=== PATIENT | male | born 1945 | race Caucasian/White ===

== ENCOUNTER 2018-02-01 10:04 | Emergency (ER) | payer OTHER ==
--- NOTE | 2018-02-01 10:35 | EDPHYS ---
Physician Documentation [facility] Name: Vamshi Felton Jr Age: 72 yrs Sex: Male : 1945 Arrival Date: 02/01/2018 Time: 10:07 Bed 16 Private MD: Trevin Russ V ED Physician Martínez Reddy HPI: 02/01 10:20 This 72 yrs old Male presents to ER via Ambulatory with complaints of jmm Laceration To Arm. 10:20 The patient has a laceration. The laceration(s) is(are) located on the left arm. Onset: jmm The symptoms/episode began/occurred acutely, 1 day(s) ago. This is a 72 year old male with a history of HLP that presents to the ED with a laceration to the left elbow. Patient states he scraped the elbow on porcelain while lifting a water jug. Patient is concerned due to ongoing mild bleeding. Patient is taking Plavix and aspirin. . Historical: - Allergies: 10:10 PENICILLINS; aj - Home Meds: 10:10 atorvastatin Oral [Active]; metoprolol tartrate 50 mg Oral tab 1 tab 2 times per day aj [Active]; Plavix 75 mg Oral tab 1 tab once daily [Active]; - PMHx: 10:10 Hyperlipidemia; Myocardial infarction; aj - PSHx: 10:10 Heart stents; Pacemaker; aj - Immunization history:: Adult Immunizations up to date. - Social history:: Smoking status: Patient/guardian denies using tobacco. - Ebola Screening: : Patient negative for fever greater than or equal to 101.5 degrees Fahrenheit, and additional compatible Ebola Virus Disease symptoms Patient denies exposure to infectious person Patient denies travel to an Ebola-affected area in the 21 days before illness onset No symptoms or risks identified at this time. ROS: 10:26 Constitutional: Negative for fever, chills, and weight loss, Cardiovascular: Negative jmm for chest pain, palpitations, and edema, Respiratory: Negative for shortness of breath, cough, wheezing, and pleuritic chest pain. 10:26 MS/extremity: Positive for laceration. 10:26 Skin: Positive for laceration(s). 10:26 All other systems are negative. Exam: 10:26 Head/Face: atraumatic. Chest/axilla: Normal chest wall appearance and motion. elmo Cardiovascular: Regular rate and rhythm. No edema appreciated Respiratory: Normal respirations, no respiratory distress appreciated 10:26 Eyes: EOMI, no conjunctival erythema appreciated ENT: Moist Mucus Membranes Neck: Trachea midline, Supple Abdomen/GI: Non distended, soft Back: Normal ROM 10:26 Constitutional: The patient appears in no acute distress, alert, awake. 10:26 Skin: healing laceration noted to the left elbow, no active bleeding appreciated, no surrounding erythema or induration noted to the proximal left forearm. 10:26 Neuro: Orientation: is normal, Mentation: is normal, Memory: is normal, Gait: is steady. 10:26 Psych: Behavior/mood is pleasant, cooperative. Vital Signs: 10:10 BP 138 / 76; Pulse 60; Resp 20; Temp 97.2; Pulse Ox 96% on R/A; Weight 77.11 kg; Height aj 5 ft. 8 in. (172.72 cm); 10:10 Body Mass Index 25.85 (77.11 kg, 172.72 cm) Procedures: 10:26 Performed wound care. Pressure dressing with surgicel applied to laceration. . elmo MDM: 10:20 Patient medically screened. [facility] 10:26 Data reviewed: vital signs, nurses notes. Counseling: I had a detailed discussion with elmo the patient and/or guardian regarding: the historical points, exam findings, and any diagnostic results supporting the discharge/admit diagnosis, the need for outpatient follow up, to return to the emergency department if symptoms worsen or persist or if there are any questions or concerns that arise at home. 10:26 Data interpreted: Pulse oximetry: on room air is 96 %. Interpretation: normal. elmo Administered Medications: No medications were administered Disposition: 17:31 Co-signature as Attending Physician, Martínez Reddy MD. Disposition: 02/01/18 10:34 Discharged to Home. Impression: Left Forearm Laceration. - Condition is Stable. - Discharge Instructions: Nonsutured Laceration Care. - Medication Reconciliation Form, Thank You Letter, Antibiotic Education, Prescription Opioid Use form. - Follow up: Private Physician; When: 2 - 3 days; Reason: Recheck today's complaints, Continuance of care, Re-evaluation by your physician. Signatures: Lisbeth Musa RN RN aj Mickail, Joel, PA PA jmm Leal, Jahala, MICAH RN jl7 Martínez Reddy MD MD gs Corrections: (The following items were deleted from the chart) 10:28 10:20 This is a 72 year old male with a history of HLP that presents to the ED with. jmmjmm 10:51 10:34 02/01/2018 10:34 Discharged to Home. Impression: Left Forearm Laceration. jl7 Condition is Stable. Forms are Medication Reconciliation Form, Thank You Letter, Antibiotic Education, Prescription Opioid Use. Follow up: Private Physician; When: 2 - 3 days; Reason: Recheck today's complaints, Continuance of care, Re-evaluation by your physician. elmo
--- NOTE | 2018-02-01 10:35 | ER ---
Nurse's Notes [facility] Name: Vamshi Felton Jr Age: 72 yrs Sex: Male : 1945 Arrival Date: 02/01/2018 Time: 10:07 Bed 16 Private MD: Trevin Russ V Diagnosis: Left Forearm Laceration Presentation: 02/01 10:09 Presenting complaint: Patient states: Skin tear to left elbow 24 hours ago, patient aj reports bleeding has continued. Transition of care: patient was not received from another setting of care. Complicating Factors: There are no complicating factors for this patient. Onset of symptoms was January 31, 2018. Risk Assessment: Do you want to hurt yourself or someone else? Patient reports no desire to harm self or others. Initial Sepsis Screen: Does the patient meet any 2 criteria? No. Patient's initial sepsis screen is negative. Does the patient have a suspected source of infection? No. Patient's initial sepsis screen is negative. Care prior to arrival: None. 10:09 Method Of Arrival: Ambulatory aj 10:09 Acuity: EARLENE 4 aj Triage Assessment: 10:10 General: Appears in no apparent distress. comfortable, Behavior is calm, cooperative, aj appropriate for age. Pain: Denies pain. Neuro: Level of Consciousness is awake, alert, obeys commands, Oriented to person, place, time, situation, Appropriate for age. Respiratory: Airway is patent Respiratory effort is even, unlabored, Respiratory pattern is regular, symmetrical. Derm: Skin is intact, is healthy with good turgor, Skin is pink, warm \T\ dry. normal. Injury Description: Laceration sustained to left elbow. Historical: - Allergies: 10:10 PENICILLINS; aj - Home Meds: 10:10 atorvastatin Oral [Active]; metoprolol tartrate 50 mg Oral tab 1 tab 2 times per day aj [Active]; Plavix 75 mg Oral tab 1 tab once daily [Active]; - PMHx: 10:10 Hyperlipidemia; Myocardial infarction; aj - PSHx: 10:10 Heart stents; Pacemaker; aj - Immunization history:: Adult Immunizations up to date. - Social history:: Smoking status: Patient/guardian denies using tobacco. - Ebola Screening: : Patient negative for fever greater than or equal to 101.5 degrees Fahrenheit, and additional compatible Ebola Virus Disease symptoms Patient denies exposure to infectious person Patient denies travel to an Ebola-affected area in the 21 days before illness onset No symptoms or risks identified at this time. Screenin:20 Abuse screen: Denies threats or abuse. Denies injuries from another. Nutritional jl7 screening: No deficits noted. Tuberculosis screening: No symptoms or risk factors identified. Fall Risk None identified. Assessment: 10:20 General: Appears in no apparent distress. uncomfortable, Behavior is calm, appropriate jl7 for age. Pain: Denies pain. Neuro: Level of Consciousness is awake, alert, obeys commands, Oriented to person, place, time, situation. Cardiovascular: Patient's skin is warm and dry. Respiratory: Airway is patent Respiratory effort is even, unlabored, Respiratory pattern is regular, symmetrical. Derm: Skin is pink, warm \T\ dry. Musculoskeletal: Range of motion: intact in all extremities. Injury Description: Skin tear noted to left elbow. Vital Signs: 10:10 BP 138 / 76; Pulse 60; Resp 20; Temp 97.2; Pulse Ox 96% on R/A; Weight 77.11 kg; Height aj 5 ft. 8 in. (172.72 cm); 10:10 Body Mass Index 25.85 (77.11 kg, 172.72 cm) aj ED Course: 10:07 Patient arrived in ED. mr 10:07 Trevin Russ MD is Private Physician. mr 10:10 Triage completed. aj 10:10 Arm band placed on left wrist. Patient placed in an exam room. aj 10:13 Devante Little PA is PHCP. [facility] 10:13 Martínez Reddy MD is Attending Physician. [facility] 10:20 Patient has correct armband on for positive identification. Bed in low position. Call jl7 light in reach. Side rails up X 1. Pulse ox on. NIBP on. 10:20 Patient did not have IV access during this emergency room visit. jl7 10:29 Kin Sebastian, MICAH is Primary Nurse. jl7 10:49 Wound care: to laceration located on left elbow was cleaned with soap and water, jl7 dressed with non stick gauze and Coban , absorbable hemostat applied Patient tolerated well. 10:51 No provider procedures requiring assistance completed. jl7 Administered Medications: No medications were administered Outcome: 10:34 Discharge ordered by . elmo 10:49 Discharged to home ambulatory. jl7 10:49 Condition: stable 10:49 Discharge instructions given to patient, Instructed on discharge instructions, follow up and referral plans. wound care, Demonstrated understanding of instructions, follow-up care, wound care. 10:51 Patient left the ED. jl7 Signatures: Lisbeth Musa RN RN aj Mickail, Joel, PA PA jmm Rivera, Maria mr Kin Sebastian RN RN jl7
== END 2018-02-01 10:51 | disposition home or self-care (01) ==
LOC: ER 10:04
DX: S51.812A Laceration without foreign body of left forearm, initial encounter (principal); W22.8XXA Striking against or struck by other objects, initial encounter; Y93.89 Activity, other specified; Y92.9 Unspecified place or not applicable; Z79.01 Long term (current) use of anticoagulants; Z88.0 Allergy status to penicillin; Z95.0 Presence of cardiac pacemaker; Z95.818 Presence of other cardiac implants and grafts; E78.5 Hyperlipidemia, unspecified; I25.2 Old myocardial infarction
CPT/HCPCS: 99283

== ENCOUNTER 2020-03-23 12:42 | Observation (INO) | payer OTHER ==
[2020-03-23 13:05] VITALS: BMI 25.7
[2020-03-23] MEDS ORDERED: NACHLORIDE 0.45% 1,000 ML IV SCH (14:00)
[2020-03-23] MEDS ORDERED: ACETAMINOPHEN 325 MG TABLET PO PRN (14:00)
[2020-03-23] MEDS ORDERED: ONDANSETRON 4 MG/2 ML VIAL IV PRN (14:00)
[2020-03-23] MEDS ORDERED: DIPHENHYDRAMINE 25 MG TAB/CAP PO PRN (14:00)
[2020-03-23] MEDS ORDERED: LOPERAMIDE HCL 2 MG CAPSULE PO PRN (14:00)
[2020-03-23] MEDS ORDERED: ONDANSETRON 4 MG (ODT) TAB PO PRN (14:00)
[2020-03-23] MEDS ORDERED: POLYETHYL GLY 3350 17 GM/DOSE PO PRN (14:00)
--- NOTE | 2020-03-23 14:31 | RAD REPORT ---
EXAM DESCRIPTION: Matt Curtis And Lat (2 Views)03/23/2020 2:06 pm CLINICAL HISTORY: Shortness of breath COMPARISON: March 16, 2020 FINDINGS: Mild bilateral interstitial opacities have partially resolved Small pleural effusions. The heart is mildly enlarged. Pacemaker leads in place IMPRESSION: Partial resolution in mild CHF
[2020-03-23 14:50] LABS: Absolute Lymphocytes (CBC) 0.5 K/uL (0.7-4.9); Basophils % 0.4 % (0-1.3); Hematocrit 34.6 % (39.6-49.0); Lymphocytes % 5.1 % (15.3-44.8); MPV 8.7 fL (7.6-11.3); RBC Red Blood Cell Count 3.47 M/uL (4.33-5.43)
[2020-03-23 14:54] LABS: Protime INR 1.68
[2020-03-23 15:30] LABS: Albumin 3.4 g/dL (3.4-5.0); Bilirubin Direct 0.3 mg/dL (0-0.2); Bilirubin Total 0.9 mg/dL (0.2-1.0); Magnesium 2.2 mg/dL (1.8-2.4); Phosphorus 3.1 mg/dL (2.5-4.9); Potassium 4.4 mmol/L (3.5-5.1); Protein, Total 6.5 g/dL (6.4-8.2); Thyroid Stimulating Hormone 1.09 uIU/mL (0.360-3.740)
[2020-03-23 16:03] LABS: Blood Morphology Comment NOT SEEN (NOT SEEN); Platelet Estimate ADEQ; White Blood Cell Scan OK (OK)
[2020-03-23] MEDS ORDERED: FUROSEMIDE 40 MG/4 ML VIAL IV SCH (21:00)
[2020-03-23] MEDS: METOPROLOL TARTRATE 50 MG PO SCH (21:00)
[2020-03-23] MEDS: FUROSEMIDE 20 MG/ 2ML VIAL IV SCH (21:17)
[2020-03-23] MEDS: POTASSIUM CL SA 10 MEQ TAB PO SCH (21:17)
[2020-03-24 06:06] LABS: Absolute Lymphocytes (CBC) 0.9 K/uL (0.7-4.9); Basophils % 0.6 % (0-1.3); Hematocrit 30.9 % (39.6-49.0); Lymphocytes % 10.1 % (15.3-44.8); MPV 8.4 fL (7.6-11.3); RBC Red Blood Cell Count 3.15 M/uL (4.33-5.43)
[2020-03-24 06:20] LABS: Magnesium 2.2 mg/dL (1.8-2.4); Potassium 4.6 mmol/L (3.5-5.1)
[2020-03-24] MEDS: FUROSEMIDE 20 MG/ 2ML VIAL IV SCH ×2 (08:38→22:01)
[2020-03-24] MEDS: POTASSIUM CL SA 10 MEQ TAB PO SCH ×2 (08:38→21:00)
[2020-03-24] MEDS ORDERED: FERROUS SULFATE 65 MG PO SCH (09:00)
[2020-03-24] MEDS ORDERED: CLOPIDOGREL BISULFATE PO SCH (09:00)
[2020-03-24] MEDS: VALSARTAN PO SCH (09:00)
[2020-03-24] MEDS: FEXOFENADINE HCL 180 MG PO SCH (09:00)
[2020-03-24] MEDS: SACUBITRIL PO SCH (09:00)
[2020-03-24] MEDS: METOPROLOL TARTRATE 50 MG PO SCH ×2 (09:00→21:00)
[2020-03-24] MEDS: OMEPRAZOLE 40 MG PO SCH (09:00)
[2020-03-24] MEDS ORDERED: ACETAMINOPHEN 325 MG PO PRN (14:50)
[2020-03-24] MEDS ORDERED: CLONAZEPAM 0.5 MG PO PRN (16:00)
[2020-03-24] MEDS ORDERED: CLONAZEPAM 0.5 MG PO SCH (18:00)
[2020-03-24] MEDS ORDERED: XARELTO 20 MG PO SCH (18:00)
--- NOTE | 2020-03-24 20:29 | P.PN ---
Subjective Date of Service: 03/24/20 Chief Complaint: DYSPNEA Subjective: Improving MR. MUNOZ FAILED OUTPATIENT THERAPY OF LASIX BID, ENTRESTO FOR HIS CHF SYMPTOMS. TODAY HE IS SOMEWHAT BETTER BUT NOT SIGNIFICANLY. HE WILL STAY ONE MORE DAY AND GET IV DIURESIS. Review of Systems 10-point ROS is otherwise unremarkable General: Weakness Respiratory: Shortness of Breath Physical Examination - Vital Signs Temperature: 98.1 F Blood Pressure: 159/82 Pulse: 66 Respirations: 23 Pulse Ox (%): 91 - Physical Exam General: Oriented x3, Mild distress, Moderate distress HEENT: Atraumatic, PERRLA, EOMI Neck: Supple, JVD not distended, JVD distended (IMPROVED FROM YESTEERDAY) Respiratory: Clear to auscultation bilaterally, Normal air movement Cardiovascular: Regular rate/rhythm, Normal S1 S2 Gastrointestinal: Normal bowel sounds, No tenderness Musculoskeletal: No tenderness Integumentary: No rashes Neurological: Normal speech, Normal tone, Normal affect Lymphatics: No axilla or inguinal lymphadenopathy - Studies Laboratory Data (last 24 hrs) 03/24/20 05:38: Sodium 142, Potassium 4.6, BUN 27 H, Creatinine 1.14, Glucose 84, Magnesium 2.2 03/24/20 05:38: WBC 8.8, Hgb 10.6 L, Hct 30.9 L, Plt Count 261 Medications List Reviewed: Yes Assessment And Plan - Current Problems (Diagnosis) (1) Systolic CHF, acute on chronic Current Visit: Yes Status: Acute Plan: DECOMPENSATION TREATED BY LASIX IV BID. YOUNG CHAPMAN. HE GOES TO DR. BRUNO. (2) HTN (hypertension) Current Visit: Yes Status: Chronic Qualifiers: Hypertension type: essential hypertension Qualified Code(s): I10 - Essential (primary) hypertension (3) A-fib Current Visit: Yes Status: Chronic Plan: ANTICOAGULATED RATE CONTROL DONE. Qualifiers: Atrial fibrillation type: longstanding persistent Qualified Code(s): I48.11 - Longstanding persistent atrial fibrillation
[2020-03-24] MEDS ORDERED: RIVAROXABAN 10 MG TABLET PO SCH (21:00)
[2020-03-25 08:12] VITALS: TEMP 97.5
[2020-03-25] MEDS ORDERED: CITALOPRAM 40 MG PO SCH (09:00)
[2020-03-25] MEDS: OMEPRAZOLE 40 MG PO SCH (09:00)
[2020-03-25] MEDS: VALSARTAN PO SCH (09:00)
[2020-03-25] MEDS: SACUBITRIL PO SCH (09:00)
[2020-03-25] MEDS ORDERED: CITALOPRAM 10 MG TABLET PO SCH (09:00)
[2020-03-25] MEDS: METOPROLOL TARTRATE 50 MG PO SCH (09:00)
[2020-03-25] MEDS: FEXOFENADINE HCL 180 MG PO SCH (09:00)
[2020-03-25] MEDS: FUROSEMIDE 20 MG/ 2ML VIAL IV SCH (09:22)
[2020-03-25] MEDS: POTASSIUM CL SA 10 MEQ TAB PO SCH (09:22)
[2020-03-25 11:59] VITALS: BP 140/73
[2020-03-25 13:06] VITALS: O2SAT 96
--- NOTE | 2020-03-25 14:55 | P.DS ---
Admission Date: 03/23/20 Discharge Date: 03/25/20 Disposition: ROUTINE DISCHARGE Discharge Condition: FAIR Reason for Admission: DYSPNEA - Problems (1) Systolic CHF, acute on chronic Current Visit: Yes Status: Acute (2) HTN (hypertension) Current Visit: Yes Status: Chronic Qualifiers: Hypertension type: essential hypertension Qualified Code(s): I10 - Essential (primary) hypertension (3) A-fib Current Visit: Yes Status: Chronic Qualifiers: Atrial fibrillation type: longstanding persistent Qualified Code(s): I48.11 - Longstanding persistent atrial fibrillation Hospital Course: MR. MUNOZ HAS SEVERE SYSTOLIC CHF, HE IS ON HIGH DOSE OF LASIX BID 80 MG. HE STILL IS SYMPTOMATIC. HE DID BETTER WITH IV LASIX. HE IS WALKING AROUND IN THE ROOM WITHOUT MUCH DISTRESS. HE HAS EDEMA OF LEGS. HE WILL FOLLOW WITH DR. BRUNO. HE IS ALREADY ON ENTERSTO. HE IS STABLE FOR DISCHARGE. Vital Signs/Physical Exam: Temp Pulse Resp BP Pulse Ox 97.5 F 60 14 140/73 96 03/25/20 11:58 03/25/20 11:58 03/25/20 11:58 03/25/20 11:58 03/25/20 11:58 Laboratory Data at Discharge: WBC 8.8 K/uL (4.3-10.9) 03/24/20 05:38 Hgb 10.6 g/dL (13.6-17.9) L 03/24/20 05:38 Hct 30.9 % (39.6-49.0) L 03/24/20 05:38 Plt Count 261 K/uL (152-406) 03/24/20 05:38 PT 19.6 SECONDS (9.5-12.5) H 03/23/20 14:28 INR 1.68 03/23/20 14:28 APTT 33.1 SECONDS (24.3-36.9) 03/23/20 14:28 Sodium 142 mmol/L (136-145) 03/24/20 05:38 Potassium 4.6 mmol/L (3.5-5.1) 03/24/20 05:38 BUN 27 mg/dL (7-18) H 03/24/20 05:38 Creatinine 1.14 mg/dL (0.55-1.3) 03/24/20 05:38 Glucose 84 mg/dL (74-106) 03/24/20 05:38 Phosphorus 3.1 mg/dL (2.5-4.9) 03/23/20 14:28 Magnesium 2.2 mg/dL (1.8-2.4) 03/24/20 05:38 Total Bilirubin 0.9 mg/dL (0.2-1.0) 03/23/20 14:28 AST 58 U/L (15-37) H 03/23/20 14:28 ALT 85 U/L (12-78) H 03/23/20 14:28 Alkaline Phosphatase 93 U/L (45-117) 03/23/20 14:28 Home Medications: Atorvastatin Calcium [Lipitor] 40 mg PO DAILY 07/30/14 Clonazepam 0.5 mg PO PRN 07/30/14 Clopidogrel Bisulfate [Clopidogrel] 1 tab PO DAILY 07/30/14 Fexofenadine HCl [Joycelyn Allergy] 60 mg PO DAILY 07/30/14 Furosemide 1 tab PO Q12H 07/30/14 Metoprolol Tartrate 50 mg PO BID 07/30/14 Potassium Chloride 5 meq PO DAILY 07/30/14 Acetaminophen [Tylenol] 1 tab PO PRN PRN 03/23/20 Ascorbic Acid [Vitamin C*] 500 mg PO [id number] 03/23/20 Ferrous Sulfate [Ferrous Sulfate*] 65 mg PO DAILY 03/23/20 Pantoprazole [Protonix Tab*] 40 mg PO DAILY 03/23/20 Rivaroxaban [Xarelto*] 20 mg PO BEDTIME 03/23/20 Sacubitril/Valsartan [Entresto 24 mg-26 mg Tablet] 1 tab PO DAILY 03/23/20 Citalopram [Celexa*] 40 mg PO DAILY 03/24/20 Followup: Trevin Russ MD [Primary Care Provider] -
[2020-03-26 12:41] LABS: Vitamin D 1,25-Dihydroxy Total 76 pg/mL (18-72); Vitamin D,1,25-OH2, D2 <8 pg/mL
== END 2020-03-25 16:19 | disposition home or self-care (01) ==
LOC: 2ND 12:42
PROVIDERS: ADMIT Internal Medicine; ATTEND Internal Medicine
DX: I11.0 Hypertensive heart disease with heart failure (principal); I50.23 Acute on chronic systolic (congestive) heart failure; I48.11 Longstanding persistent atrial fibrillation; Z85.46 Personal history of malignant neoplasm of prostate; I25.10 Atherosclerotic heart disease of native coronary artery without angina pectoris; M19.90 Unspecified osteoarthritis, unspecified site; K21.9 Gastro-esophageal reflux disease without esophagitis; I42.0 Dilated cardiomyopathy; Z79.01 Long term (current) use of anticoagulants
CPT/HCPCS: 87040; 85025 ×2; 80048 ×2; 36415 ×2; 83735 ×2; 84100; 85610; 80076; 85730; 82652; 84443; 82607; 83880; 71046; J1940 ×4; G0378 ×4; G0379

== ENCOUNTER 2020-04-02 07:04 | Observation (INO) | payer OTHER ==
--- NOTE | 2020-04-02 08:01 | RAD REPORT ---
EXAM DESCRIPTION: RAD - Chest Single View - 04/02/2020 7:50 am CLINICAL HISTORY: DYSPNEA Chest pain. COMPARISON: Chest Pa And Lat (2 Views) dated 03/23/2020; Chest Pa And Lat (2 Views) dated 03/16/2020 ; CHEST PA AND LAT 2 VIEW dated 09/09/2012; CHEST SINGLE VIEW dated 03/17/2009 FINDINGS: Portable technique limits examination quality. Mild to moderate interstitial pulmonary edema is seen with small bilateral pleural effusions. The hea rt is moderately enlarged with multilead pacer/ defibrillator device. No displaced fractures. IMPRESSION: Mild to moderate CHF is present.
[2020-04-02] MEDS ORDERED: FUROSEMIDE 40 MG/4 ML VIAL ONE (08:07)
[2020-04-02 08:11] LABS: Absolute Lymphocytes (CBC) 0.6 K/uL (0.7-4.9); Basophils % 0.5 % (0-1.3); Hematocrit 33.6 % (39.6-49.0); Lymphocytes % 6.2 % (15.3-44.8); MPV 8.7 fL (7.6-11.3); RBC Red Blood Cell Count 3.44 M/uL (4.33-5.43)
[2020-04-02 08:16] LABS: Protime INR 2.35
[2020-04-02 08:27] LABS: Potassium 3.9 mmol/L (3.5-5.1)
[2020-04-02 08:28] LABS: Troponin (Emerg Dept Use Only) 0.05 ng/mL (0.0-0.045)
--- NOTE | 2020-04-02 08:54 | EDPHYS ---
Physician Documentation [facility] Name: Vamshi Felton Jr Age: 74 yrs Sex: Male : 1945 Arrival Date: 04/02/2020 Time: 07:09 Bed 16 Private MD: Trevin Russ V ED Physician Carlos Matrínez HPI: 04/02 07:28 This 74 yrs old Male presents to ER via Ambulatory with complaints of rn Shortness Of Breath. 07:28 The patient has shortness of breath with light activity. Onset: The symptoms/episode rn began/occurred at an unknown time. Duration: The symptoms are intermittent. The patient's shortness of breath is aggravated by exertion, light activity, walking. Associated signs and symptoms: Pertinent positives: non-productive cough, Pertinent negatives: diaphoresis, dizziness, fever, hemoptysis, loss of consciousness, vomiting. Severity of symptoms: At their worst the symptoms were moderate in the emergency department the symptoms are unchanged. The patient has experienced similar episodes in the past. The patient has been recently seen at the [facility] Emergency Department, The patient has been recently been admitted at [facility]. Reports admitted last week for CHF, never really felt much better at time of discharge, feels about the same to slightly worse than when in hospital, no fever or productive cough. Reports tested neg for COVID-19 "multiple times". COmpliant with lasix, 40mg daily. . Historical: - Allergies: 07:22 PENICILLINS; hb - Home Meds: 07:30 atorvastatin Oral [Active]; metoprolol tartrate 50 mg Oral tab 1 tab 2 times per day rb3 [Active]; Plavix 75 mg Oral tab 1 tab once daily [Active]; - PMHx: 07:22 Hyperlipidemia; Myocardial infarction; CHF; hb - PSHx: 07:22 Heart stents; Pacemaker; hb - Immunization history:: Adult Immunizations up to date. - Social history:: Smoking status: Patient denies any tobacco usage or history of. - Family history:: not pertinent. - Hospitalizations: : The patient was recently seen at [facility]. ROS: 07:28 Constitutional: Negative for fever, chills, and weight loss, Eyes: Negative for injury, rn pain, redness, and discharge, Neck: Negative for injury, pain, and swelling, Cardiovascular: Negative for chest pain, palpitations, + peripheral edema Respiratory: + sob and non-productive cough Abdomen/GI: Negative for abdominal pain, nausea, vomiting, diarrhea, and constipation, Back: Negative for injury and pain, MS/Extremity: Negative for injury and deformity, Skin: Negative for injury, rash, and discoloration, Neuro: Negative for headache, weakness, numbness, tingling, and seizure. Exam: 07:28 Constitutional: This is a well developed, well nourished patient who is awake, alert, rn and in no acute distress. Slowly ambulatory to room. Head/Face: Normocephalic, atraumatic. ENT: No stridor Cardiovascular: Irregular rhythm, regular rate, intact distal pulses Respiratory: + mild tachypnea, no retractions Abdomen/GI: soft, non-tender Skin: Warm, dry MS/ Extremity: Pulses equal, no cyanosis. + 1+ pitting edema bilateral lower ext Neuro: Awake and alert, GCS 15, oriented to person, place, time, and situation. Cranial nerves II-XII grossly intact. Motor strength 4/5 in all extremities. Sensory grossly intact. Vital Signs: 07:18 BP 152 / 101; Pulse 63; Resp 24; Temp 97.8(TE); Pulse Ox 97% on R/A; Pain 0/10; hb 08:30 BP 140 / 88; Pulse 60; Resp 27; Pulse Ox 94% ; Pain 0/10; rb3 09:30 BP 154 / 86; Pulse 65; Resp 19; Pulse Ox 100% ; rb3 10:42 BP 155 / 88; Pulse 60; Resp 17; Pulse Ox 97% ; rb3 11:24 BP 149 / 86; Pulse 61; Resp 22; Temp 98.0; Pulse Ox 95% ; Pain 0/10; rb3 12:30 BP 125 / 82; Pulse 59; Resp 20; Pulse Ox 95% on R/A; Pain 0/10; rb3 MDM: 07:24 Patient medically screened. rn 08:50 Differential diagnosis: CHF exacerbation, Myocardial Infarction Pneumothorax pulmonary rn edema. Data reviewed: vital signs, nurses notes, lab test result(s), EKG, radiologic studies, plain films, and as a result, I will admit patient. Counseling: I had a detailed discussion with the patient and/or guardian regarding: the historical points, exam findings, and any diagnostic results supporting the discharge/admit diagnosis, lab results, radiology results, the need for further work-up and treatment in the hospital. Response to treatment: the patient's symptoms have mildly improved after treatment, and as a result, I will admit patient. Admission orders: after a detailed discussion of the patient's condition and case, the admit orders are written by me. ED course: Pt with tachypnea, oxygen 93%, CXR shows pulmonary edema with moderate CHF picture, consulted with Dr. Russ, will admit with cardiology consult. . 04/02 07:25 Order name: BMP; Complete Time: 08:50 rn 04/02 07:25 Order name: CBC with Diff; Complete Time: 08:24 rn 04/02 07:25 Order name: NT PRO-BNP; Complete Time: 08:50 rn 04/02 07:25 Order name: PT-INR; Complete Time: 08:50 rn 04/02 07:25 Order name: Ptt, Activated; Complete Time: 08:50 rn 04/02 07:25 Order name: Troponin (emerg Dept Use Only); Complete Time: 08:50 rn 04/02 07:25 Order name: XRAY CXR (1 view); Complete Time: 08:24 rn 04/02 07:25 Order name: EKG; Complete Time: 07:26 rn 04/02 07:25 Order name: Cardiac monitoring; Complete Time: 08:44 rn 04/02 07:25 Order name: EKG - Nurse/Tech; Complete Time: 08:44 rn 04/02 07:25 Order name: IV Saline Lock; Complete Time: 08:44 rn 04/02 07:25 Order name: Labs collected and sent; Complete Time: 08:44 rn 04/02 07:25 Order name: O2 Per Protocol; Complete Time: 08:44 rn 04/02 07:25 Order name: O2 Sat Monitoring; Complete Time: 08:44 rn Administered Medications: 08:17 Drug: Lasix 40 mg Route: IVP; Site: left antecubital; rb3 08:30 Follow up: Response: No adverse reaction rb3 Disposition: 04/02/20 08:53 Hospitalization ordered by Trevin Russ for Inpatient Admission. Preliminary diagnosis are Unspecified combined systolic (congestive) and diastolic (congestive) heart failure, Dyspnea, unspecified, Pulmonary edema. - Bed requested for Telemetry/MedSurg (Inpatient). - Status is Inpatient Admission. rb3 - Condition is Stable. - Problem is an ongoing problem. - Symptoms have improved. Signatures: Dispatcher [employer] EDMS Carlos Martínez MD MD rn Baxter, Heather RN Yosvany Monzon RN RN ja1 Kimber Melton, RN RN rb3 Corrections: (The following items were deleted from the chart) 08:41 07:28 Constitutional: This is a well developed, well nourished patient who is awake, rn alert, and in no acute distress. Slowly ambulatory to room. Head/Face: Normocephalic, atraumatic. ENT: No stridor Cardiovascular: Irregular rhythm, regular rate, intact distal pulses Respiratory: + mild tachypnea, no retractions Abdomen/GI: soft, non-tender Skin: Warm, dry MS/ Extremity: Pulses equal, no cyanosis. Neuro: Awake and alert, GCS 15, oriented to person, place, time, and situation. Cranial nerves II-XII grossly intact. Motor strength 4/5 in all extremities. Sensory grossly intact. rn 10:59 08:53 Hospitalization Ordered by Trevin Russ MD for Inpatient Admission. Preliminary ja1 diagnosis is Unspecified combined systolic (congestive) and diastolic (congestive) heart failure; Dyspnea, unspecified; Pulmonary edema. Bed requested for Telemetry/MedSurg (Inpatient). Status is Inpatient Admission. Condition is Stable. Problem is an ongoing problem. Symptoms have improved. rn 13:00 10:59 04/02/2020 08:53 Hospitalization Ordered by Trevin Russ MD for Inpatient rb3 Admission. Preliminary diagnosis is Unspecified combined systolic (congestive) and diastolic (congestive) heart failure; Dyspnea, unspecified; Pulmonary edema. Bed requested for Telemetry/MedSurg (Inpatient). Status is Inpatient Admission. Condition is Stable. Problem is an ongoing problem. Symptoms have improved. ja1
--- NOTE | 2020-04-02 08:54 | ER ---
Nurse's Notes [facility] Name: Vamshi Felton Jr Age: 74 yrs Sex: Male : 1945 Arrival Date: 04/02/2020 Time: 07:09 Bed 16 Private MD: Trevin Russ V Diagnosis: Unspecified combined systolic (congestive) and diastolic (congestive) heart failure;Dyspnea, unspecified;Pulmonary edema Presentation: 04/02 07:18 Chief complaint: Worsening SOB over last few days. Hx of CHF, says the Lasix is not hb helping. Coronavirus screen: Client presents with at least one sign or symptom that may indicate coronavirus-19. Standard/surgical mask placed on the client. Ebola Screen: No symptoms or risks identified at this time. Initial Sepsis Screen: Does the patient meet any 2 criteria? No. Patient's initial sepsis screen is negative. Does the patient have a suspected source of infection? No. Patient's initial sepsis screen is negative. Risk Assessment: Do you want to hurt yourself or someone else? Patient reports no desire to harm self or others. Onset of symptoms was April 02, 2020. 07:18 Method Of Arrival: Ambulatory hb 07:18 Acuity: EARLENE 3 hb Triage Assessment: 07:22 General: Appears in no apparent distress. Behavior is calm, cooperative. Pain: Denies hb pain. EENT: No signs and/or symptoms were reported regarding the EENT system. Neuro: Level of Consciousness is awake, alert, obeys commands, Oriented to person, place, time, situation. Cardiovascular: Capillary refill < 3 seconds Patient's skin is warm and dry. Rhythm is regular. Respiratory: Reports shortness of breath the patient has mild shortness of breath. GI: No signs and/or symptoms were reported involving the gastrointestinal system. : No signs and/or symptoms were reported regarding the genitourinary system. Derm: No signs and/or symptoms reported regarding the dermatologic system. Musculoskeletal: No signs and/or symptoms reported regarding the musculoskeletal system. 07:25 General: I agree with the above assessment. rb3 Historical: - Allergies: 07:22 PENICILLINS; hb - Home Meds: 07:30 atorvastatin Oral [Active]; metoprolol tartrate 50 mg Oral tab 1 tab 2 times per day rb3 [Active]; Plavix 75 mg Oral tab 1 tab once daily [Active]; - PMHx: 07:22 Hyperlipidemia; Myocardial infarction; CHF; hb - PSHx: 07:22 Heart stents; Pacemaker; hb - Immunization history:: Adult Immunizations up to date. - Social history:: Smoking status: Patient denies any tobacco usage or history of. - Family history:: not pertinent. - Hospitalizations: : The patient was recently seen at [facility]. Screenin:23 Abuse screen: Denies threats or abuse. Denies injuries from another. Nutritional hb screening: No deficits noted. Tuberculosis screening: No symptoms or risk factors identified. Fall Risk None identified. Assessment: 07:23 General: see triage . hb 08:05 Reassessment: Patient appears in no apparent distress at this time. No changes from rb3 previously documented assessment. Respiratory: Reports shortness of breath at rest on exertion. 09:01 Reassessment: Patient appears in no apparent distress at this time. Patient and/or rb3 family updated on plan of care and expected duration. Pain level reassessed. Patient is alert, oriented x 3, equal unlabored respirations, skin warm/dry/pink. Patient denies pain at this time. 10:00 Reassessment: Patient appears in no apparent distress at this time. No changes from rb3 previously documented assessment. Patient denies pain at this time. 10:43 Reassessment: Patient appears in no apparent distress at this time. Patient and/or rb3 family updated on plan of care and expected duration. Pain level reassessed. Patient is alert, oriented x 3, equal unlabored respirations, skin warm/dry/pink. 11:09 Reassessment: Tried to call report, unable to give report at this time. The nurse is in rb3 a pt. room. 11:23 Reassessment: Gave report to MICAH Garcia. Information from the SBAR was given. All rb3 questions asked and answered. 12:00 Reassessment: Patient appears in no apparent distress at this time. Patient and/or rb3 family updated on plan of care and expected duration. Pain level reassessed. Patient is alert, oriented x 3, equal unlabored respirations, skin warm/dry/pink. Patient denies pain at this time. 12:07 Reassessment: Awaiting for someone to be available to transport pt. to the floor. rb3 12:52 Reassessment: Patient appears in no apparent distress at this time. No changes from rb3 previously documented assessment. Vital Signs: 07:18 BP 152 / 101; Pulse 63; Resp 24; Temp 97.8(TE); Pulse Ox 97% on R/A; Pain 0/10; hb 08:30 BP 140 / 88; Pulse 60; Resp 27; Pulse Ox 94% ; Pain 0/10; rb3 09:30 BP 154 / 86; Pulse 65; Resp 19; Pulse Ox 100% ; rb3 10:42 BP 155 / 88; Pulse 60; Resp 17; Pulse Ox 97% ; rb3 11:24 BP 149 / 86; Pulse 61; Resp 22; Temp 98.0; Pulse Ox 95% ; Pain 0/10; rb3 12:30 BP 125 / 82; Pulse 59; Resp 20; Pulse Ox 95% on R/A; Pain 0/10; rb3 ED Course: 07:09 Patient arrived in ED. am2 07:09 Trevin Russ MD is Private Physician. am2 07:21 Triage completed. hb 07:22 Arm band placed on. hb 07:23 Patient has correct armband on for positive identification. Bed in low position. Call hb light in reach. Side rails up X 1. 07:24 Carlos Martínez MD is Attending Physician. rn 07:47 Kimber Melton, MICAH is Primary Nurse. rb3 07:50 XRAY CXR (1 view) In Process Unspecified. EDMS 08:02 Inserted saline lock: 20 gauge in left antecubital area, using aseptic technique. Blood hb collected. 08:53 Trevin Russ MD is Hospitalizing Provider. rn 12:59 No provider procedures requiring assistance completed. Patient admitted, IV remains in rb3 place. Administered Medications: 08:17 Drug: Lasix 40 mg Route: IVP; Site: left antecubital; rb3 08:30 Follow up: Response: No adverse reaction rb3 Output: 09:30 Urine: 1000ml (Voided); Total: 1000ml. rb3 10:42 Urine: 650ml (Voided); Total: 1650ml. rb3 11:29 Urine: 350ml (Voided); Total: 2000ml. rb3 Outcome: 08:53 Decision to Hospitalize by Provider. rn 12:59 Admitted to Med/surg accompanied by tech, via wheelchair, room 204, with chart, Report rb3 called to MICAH Garcia 12:59 Condition: stable 12:59 Instructed on the need for admit. 13:00 Patient left the ED. rb3 Signatures: Dispatcher [employer] EDMS Carlos Martínez MD MD rn Baxter, Heather, RN RN Lisbeth Elder [facility] Kimber Melton RN RN rb3 Corrections: (The following items were deleted from the chart) 07:22 07:18 BP 152 / 101; Pulse 63bpm; Resp 20bpm; Pulse Ox 97% RA; Temp 97.8F Temporal; Pain hb 0/10; hb
[2020-04-02] MEDS ORDERED: ONDANSETRON 4 MG/2 ML VIAL IV PRN (13:48)
[2020-04-02] MEDS ORDERED: ACETAMINOPHEN 325 MG TABLET PO PRN ×2 (14:23→20:00)
--- NOTE | 2020-04-02 14:42 | P.HP ---
Certification for Inpatient Patient admitted to: Inpatient With expected LOS: >2 Midnights Practitioner: I am a practitioner with admitting privileges, knowledge of patient current condition, hospital course, and medical plan of care. Services: Services provided to patient in accordance with Admission requirements found in Title 42 Section 412.3 of the Code of Federal Regulations Patient History Date of Service: 04/02/20 Reason for admission: SHORT OF BREATH AT REST History of Present Illness: MR. MUNOZ HAS CONGESTIVE CARDIOMYOPATHY AND HAS REFRACTORY CHF FROM IT. HE WAS JUST IN HOSPITAL FOR EXACERBATION, IMPROVED SIGNIFICANLTY BUT GOT MORE DYSPNEIC LATELY AND CAME BACK TO ER. HE HAS NO CHEST PAIN. Allergies Latex, Natural Rubber Allergy (Verified 04/02/20 13:56) Shortness of breath Penicillins Allergy (Verified 07/30/14 08:34) DIARRHEA antihistamines Adverse Reaction (Uncoded 03/23/20 13:14) PALPITATIONS Home Medications: Atorvastatin Calcium [Lipitor] 40 mg PO DAILY 07/30/14 Clonazepam 0.5 mg PO PRN 07/30/14 Clopidogrel Bisulfate [Clopidogrel] 1 tab PO DAILY 07/30/14 Fexofenadine HCl [Joycelyn Allergy] 60 mg PO DAILY 07/30/14 Furosemide 1 tab PO Q12H 07/30/14 Metoprolol Tartrate 50 mg PO BID 07/30/14 Potassium Chloride 5 meq PO DAILY 07/30/14 Acetaminophen [Tylenol] 1 tab PO PRN PRN 03/23/20 Ascorbic Acid [Vitamin C*] 500 mg PO [id number] 03/23/20 Ferrous Sulfate [Ferrous Sulfate*] 65 mg PO DAILY 03/23/20 Pantoprazole [Protonix Tab*] 40 mg PO DAILY 03/23/20 Rivaroxaban [Xarelto*] 20 mg PO BEDTIME 03/23/20 Sacubitril/Valsartan [Entresto 24 mg-26 mg Tablet] 1 tab PO DAILY 03/23/20 Citalopram [Celexa*] 40 mg PO DAILY 03/24/20 - Past Medical/Surgical History Has patient received pneumonia vaccine in the past: Yes Diabetic: No -: Prostate CA -: Haert attack 2008 -: Heart Stent 2008 -: Duodenal ulcer -: Afib -: CHF -: General Panic attack -: Pacemaker/Defib 2008 -: Parathyroid removal 2012 - Family History Mother -: Heart disease Notes: AFIB, CHF Father -: Diabetes - Social History Smoking Status: Former smoker Alcohol use: No CD- Drugs: No Caffeine use: Yes Place of Residence: Home Review of Systems 10-point ROS is otherwise unremarkable General: As per HPI Physical Examination - Physical Exam General: Moderate distress HEENT: Atraumatic, PERRLA, Mucous membr. moist/pink, EOMI, Sclerae nonicteric Neck: Supple, 2+ carotid pulse no bruit, No LAD, Without JVD or thyroid abnormality Respiratory: Diminished, Crackles/rales Cardiovascular: Regular rate/rhythm, Normal S1 S2, Edema Gastrointestinal: Normal bowel sounds, No tenderness Musculoskeletal: No tenderness Integumentary: No rashes Neurological: Normal gait, Normal speech, Normal strength at 5/5 x4 extr, Normal tone, Normal affect Lymphatics: No axilla or inguinal lymphadenopathy - Studies Laboratory Data (last 24 hrs) 04/02/20 07:59: PT 27.3 H, INR 2.35, APTT 39.4 H 04/02/20 07:59: WBC 10.1 D, Hgb 11.4 L, Hct 33.6 L, Plt Count 256 04/02/20 07:59: Sodium 141, Potassium 3.9, BUN 25 H, Creatinine 1.22, Glucose 105 Assessment and Plan - Problems (Diagnosis) (1) CHF (congestive heart failure) Current Visit: Yes Status: Acute Plan: MR MUNOZ HAS NOT DONE WELL [facility] HE IS ON LASIX 80 MG PO BID AND ENTRESTO FOR CHF. I AM ADDING SPIRONOLACTONE AND ZAROXOLYN TO HELP DIURESIS. HE MAY BE A GOOD CANDIDATE FOR HEART TRANSPLANT BUT AGAIN HE IS 74 AND WILL CARRY A POOR PROGNOSIS FOR SURGERY LIKE THAT. DR ARNOLD HAS BEEN CONSULTED. DAILY LAB. Qualifiers: Heart failure type: systolic (2) Systolic CHF, acute on chronic Current Visit: No Status: Acute (3) A-fib Current Visit: No Status: Chronic Plan: HE IS ON METOPROLOL AND ELIQUIS Qualifiers: Atrial fibrillation type: permanent Qualified Code(s): I48.21 - Permanent atrial fibrillation - Advance Directives Does patient have a Living Will: Yes Does patient have a Durable POA for Healthcare: Yes
[2020-04-02] MEDS ORDERED: clonazePAM 0.5 MG TAB PO SCH (15:00)
[2020-04-02] MEDS: FUROSEMIDE 40 MG/4 ML VIAL IV SCH (17:00)
--- NOTE | 2020-04-02 17:40 | CON ---
Date of Consultation: 04/02/2020 Reason For Consultation: Shortness of breath and congestive heart failure. History Of Present Illness: This is a 74-year-old male with history of diastolic heart failure; atri al fibrillation; dyslipidemia; coronary artery disease, status post cardiac stent placement, has the pacemaker in place, presented with worsening shortness of breath, orthopnea, and lower extremity carolyn a. He is taking Lasix 40 mg at home twice a day, which did not seem to be helping well lately. He d oes not have any chest pain. No nausea, vomiting, or diarrhea. Past Medical History: As outlined above. Medications: Refer to reconciliation sheet for detailed list. Allergies: PENICILLIN. Family History: No premature coronary artery disease or cancer. Social History: Does not smoke or drink. Does not use any drugs. Review of Systems: All systems reviewed were negative except for mentioned in the HPI. Physical Examination: Vital Signs: Reviewed. His blood pressure is 145/74, heart rate is 85, breathing at 18, temperature is 97.4. General: Pleasant elderly male, in no distress. HEENT and Neck: Pupils are equal, reactive to light. Intact eye movements. No JVD. No cervical ly mphadenopathy. Neck is supple. Thyroid is not enlarged. Lungs: Crackles in the bases with no accessory muscle use or muscle retraction. Heart: Irregular with no extra sounds. Abdomen: Soft, nontender. Bowel sounds positive. No organomegaly. No masses or hernia. No rigidi ty or rebound. EXTREMITIES: Edema bilaterally. No clubbing or cyanosis. Intact pulses. Skin: No rashes. Neurologic: Alert, awake, oriented x3. No acute focal deficits appreciated. Investigations: NT-proBNP is 11,108. Troponin 0.05. Creatinine 1.22. White blood cell count is 10 .1, hemoglobin 11.4. Chest x-ray; [id number] congestive heart failure. Assessment And Plan: 1.Acute congestive heart failure exacerbation, likely acute on chronic diastolic heart failure. His creatinine is 1.22. Recommend IV Lasix 40 mg IV q.8 hours. Monitor BUN, creatinine, and electrolyt es carefully, and obtain an echocardiogram on him if it was not done recently. Also, keep the patien t on telemetry please and trend cardiac enzymes. 2.Borderline elevated troponin, likely due to heart failure. Patient does not have chest pain, two sets of cardiac enzymes, and put the patient on aspirin 81 mg daily. 3.Atrial fibrillation, likely paroxysmal, rate is controlled now, admitted on telemetry to monitor t his issue and continue home medications. Thank you for the consultation. /ALEXANDRA Voice ID: [id number] Report ID: [id number]
[2020-04-02 19:35] VITALS: BMI 24.7
[2020-04-02] MEDS ORDERED: RIVAROXABAN 10 MG TABLET PO SCH (21:00)
[2020-04-02] MEDS: METOPROLOL TAR 50 MG TAB PO SCH (21:00)
[2020-04-03 05:14] LABS: Absolute Lymphocytes (CBC) 0.9 K/uL (0.7-4.9); Basophils % 0.9 % (0-1.3); Hematocrit 32.4 % (39.6-49.0); Lymphocytes % 13.3 % (15.3-44.8); MPV 8.8 fL (7.6-11.3); RBC Red Blood Cell Count 3.27 M/uL (4.33-5.43)
[2020-04-03 05:44] LABS: Potassium 3.6 mmol/L (3.5-5.1)
[2020-04-03] MEDS ORDERED: ASCORBIC ACID 500 MG TABLET PO SCH (06:00)
[2020-04-03] MEDS ORDERED: PANTOPRAZOLE 40MG TABLET PO SCH (06:30)
[2020-04-03 06:58] VITALS: TEMP 98.9
[2020-04-03] MEDS ORDERED: METOLAZONE 2.5 MG TABLET PO SCH (08:30)
[2020-04-03 09:00] VITALS: O2SAT 95
[2020-04-03] MEDS ORDERED: CLOPIDOGREL 75 MG TABLET PO SCH (09:00)
[2020-04-03] MEDS: METOPROLOL TAR 50 MG TAB PO SCH (09:00)
[2020-04-03] MEDS ORDERED: POTASSIUM CL SA 10 MEQ TAB PO SCH (09:00)
[2020-04-03] MEDS ORDERED: SACUBITRIL/VALSARTAN 24/26 MG TAB PO SCH (09:00)
[2020-04-03] MEDS ORDERED: SPIRONOLACTONE 25 MG TABLET PO SCH (09:00)
[2020-04-03] MEDS ORDERED: [UNRECOGNIZED DRUG - REMARK] PO SCH (09:00)
[2020-04-03] MEDS ORDERED: POTASSIUM CHLORIDE 5 MEQ PO SCH (09:00)
[2020-04-03] MEDS ORDERED: ATORVASTATIN 40 MG TAB PO SCH (09:00)
[2020-04-03] MEDS ORDERED: CITALOPRAM 10 MG TABLET PO SCH (09:00)
[2020-04-03] MEDS ORDERED: FERROUS SULFATE 325 MG TAB PO SCH (09:00)
[2020-04-03] MEDS: FUROSEMIDE 40 MG/4 ML VIAL IV SCH (10:10)
[2020-04-03 10:16] VITALS: BP 125/73
--- NOTE | 2020-04-06 06:13 | EKG ---
Test Date: 2020-04-02 Test Time: 08:17:41 Rug Cleaner Hand: SAYRA MEASUREMENT RESULTS: Intervals: Rate: 60 SD: QRSD: 176 QT: 570 QTc: 570 [place]: P: 73 SD: QRS: -51 T: 121 INTERPRETIVE STATEMENTS: AV sequential or dual chamber electronic pacemaker Compared to ECG 03/18/2009 01:09:28 No significant changes Electronically Signed On 04-06-20 06:10:16 STAMP PRESSER by Darrin Stoner
== END 2020-04-03 12:05 | disposition home or self-care (01) ==
LOC: ER 07:04 → INTOOBSV 09:14 → ERHOLD 09:14 → 2ND 11:21
PROVIDERS: ADMIT Internal Medicine; ATTEND Internal Medicine
DX: I50.20 Unspecified systolic (congestive) heart failure (principal); I48.21 Permanent atrial fibrillation; E78.5 Hyperlipidemia, unspecified; Z20.828 Contact with and (suspected) exposure to other viral communicable diseases; I25.10 Atherosclerotic heart disease of native coronary artery without angina pectoris; Z95.5 Presence of coronary angioplasty implant and graft; Z95.0 Presence of cardiac pacemaker; R74.8 Abnormal levels of other serum enzymes; I42.8 Other cardiomyopathies; Z85.46 Personal history of malignant neoplasm of prostate; I25.2 Old myocardial infarction; Z87.891 Personal history of nicotine dependence; Z79.01 Long term (current) use of anticoagulants
CPT/HCPCS: 93005; 85025 ×2; 80048 ×2; 36415; 85610; 85730; 84484 ×3; 83880 ×2; 71045; 96374; 99285; U0002; J1940 ×3; G0378; U0003

== ENCOUNTER 2021-01-16 10:04 | Emergency (ER) | payer OTHER ==
[2021-01-16 12:21] LABS: Protime INR 1.88
[2021-01-16 12:26] LABS: Absolute Lymphocytes (CBC) 0.8 K/uL (0.7-4.9); Basophils % 0.5 % (0-1.3); Hematocrit 35.7 % (39.6-49.0); Lymphocytes % 9.3 % (15.3-44.8); MPV 8.4 fL (7.6-11.3); RBC Red Blood Cell Count 3.54 M/uL (4.33-5.43)
--- NOTE | 2021-01-16 12:30 | RAD REPORT ---
EXAM DESCRIPTION: RAD - Chest Single View - 01/16/2021 12:22 pm CLINICAL HISTORY: CHEST PAIN COMPARISON: Chest Single View dated 04/02/2020; Chest Pa And Lat (2 Views) dated 03/23/2020; Chest P a And Lat (2 Views) dated 03/16/2020; CHEST PA AND LAT 2 VIEW dated 09/09/2012 FINDINGS: Lines: None. Lungs: No evidence of edema or pneumonia. Pleural: No significant pleural effusions or pneumothorax. Cardiac: Cardiomegaly. Pacemaker. Bones: No acute fractures. Other: IMPRESSION: No acute cardiopulmonary disease.
[2021-01-16 12:44] LABS: ALT/SGPT 60 U/L (12-78); AST/SGOT 37 U/L (15-37); Albumin 3.7 g/dL (3.4-5.0); Alkaline Phosphatase 82 U/L (45-117); BUN Blood Urea Nitrogen 26 mg/dL (7-18); Bicarbonate 25 mmol/L (21-32); Bilirubin Direct 0.4 mg/dL (0-0.2); Bilirubin Total 1.2 mg/dL (0.2-1.0); Glucose Level 92 mg/dL (74-106); NT PRO-BNP 10571 pg/mL (<450); Potassium 4.8 mmol/L (3.5-5.1); Protein, Total 6.6 g/dL (6.4-8.2); Sodium Level 139 mmol/L (136-145); Troponin (Emerg Dept Use Only) < 0.02 ng/mL (0.0-0.045)
[2021-01-16] MEDS ORDERED: METOPROLOL TARTRATE 5 MG/5 ML INJ IV ONE (13:46)
[2021-01-16] MEDS ORDERED: FUROSEMIDE 40 MG/4 ML VIAL ONE (14:51)
--- NOTE | 2021-01-16 15:17 | EDPHYS ---
Physician Documentation [facility] Name: Vamshi Felton Jr Age: 75 yrs Sex: Male : 1945 Arrival Date: 01/16/2021 Time: 10:11 Bed 17 Private MD: Trevin Russ V ED Physician Carlos Martínez HPI: 01/16 13:22 This 75 yrs old Male presents to ER via Ambulatory with complaints of jr8 Shortness Of Breath, Nausea. 13:22 Onset: The symptoms/episode began/occurred gradually. Duration: The symptoms are jr8 continuous. The patient's shortness of breath is aggravated by light activity. Associated signs and symptoms: The patient has no apparent associated signs or symptoms. Severity of symptoms: At their worst the symptoms were moderate in the emergency department the symptoms are unchanged. The patient has not experienced similar symptoms in the past. The patient has been recently seen by a physician:. This is a 75-year-old male patient that came in to the emergency room for further evaluation of shortness of breath, nausea, decreased appetite. Has seen his primary care and his flexboard operator down here for the symptoms. Patient stated that he has a degrading pace maker wire that needs to be fixed. Has seen his mixing machine feeder who is currently tampering with the settings to hopefully improve instead of having to replace. Patient stated that he continues to have an elevated heart rate which will happen for about 24 hours and then dissipate. Patient stated that he was more short of breath than normal and as such was asked to come in for further evaluation. Historical: - Allergies: 11:04 PENICILLINS; iw - PMHx: 11:04 CHF; Hyperlipidemia; Myocardial infarction; iw - PSHx: 11:04 pacemaker/defibrillator; iw - Immunization history:: Client reports receiving the 2nd dose of the Covid vaccine. - Social history:: Smoking status: Patient denies any tobacco usage or history of. ROS: 13:22 Eyes: Negative for injury, pain, redness, and discharge, ENT: Negative for injury, jr8 pain, and discharge, Neck: Negative for injury, pain, and swelling, Abdomen/GI: Negative for abdominal pain, vomiting, diarrhea, and constipation. Positive for nausea Back: Negative for injury and pain, MS/Extremity: Negative for injury and deformity, Skin: Negative for injury, rash, and discoloration, Neuro: Negative for headache, weakness, numbness, tingling, and seizure. 13:22 Cardiovascular: Positive for palpitations, Negative for chest pain, edema. 13:22 Respiratory: Positive for dyspnea on exertion, shortness of breath. Exam: 13:22 Constitutional: This is a well developed, well nourished patient who is awake, alert, jr8 and in no acute distress. Eyes: Pupils equal round and reactive to light, extra-ocular motions intact. Lids and lashes normal. Conjunctiva and sclera are non-icteric and not injected. Cornea within normal limits. Periorbital areas with no swelling, redness, or edema. ENT: Nares patent. No nasal discharge, no septal abnormalities noted. Tympanic membranes are normal and external auditory canals are clear. Oropharynx with no redness, swelling, or masses, exudates, or evidence of obstruction, uvula midline. Mucous membranes moist. Neck: Trachea midline, no thyromegaly or masses palpated, and no cervical lymphadenopathy. Supple, full range of motion without nuchal rigidity, or vertebral point tenderness. No Meningismus. Respiratory: Lungs have equal breath sounds bilaterally, clear to auscultation and percussion. No rales, rhonchi or wheezes noted. No increased work of breathing, no retractions or nasal flaring. Abdomen/GI: Soft, non-tender, with normal bowel sounds. No distension or tympany. No guarding or rebound. No evidence of tenderness throughout. Back: No spinal tenderness. No costovertebral tenderness. Full range of motion. Skin: Warm, dry with normal turgor. Normal color with no rashes, no lesions, and no evidence of cellulitis. MS/ Extremity: Pulses equal, no cyanosis. Neurovascular intact. Full, normal range of motion. Neuro: Awake and alert, GCS 15, oriented to person, place, time, and situation. Cranial nerves II-XII grossly intact. Motor strength 5/5 in all extremities. Sensory grossly intact. 13:22 Cardiovascular: Rate: tachycardic, Rhythm: Paced rhythm on 12-lead, Pulses: Pulses are 2+ in right radial artery and left radial artery. Heart sounds: normal, normal S1and S2, no S3 or S4, no murmur, no rub, no gallop, Edema: is not appreciated, JVD: is not appreciated. Vital Signs: 11:01 BP 109 / 82; Pulse 113; Resp 18 S; Temp 98.1; Pulse Ox 99% on R/A; iw 12:00 BP 119 / 86; Pulse 114; Resp 23; Pulse Ox 98% ; bp 13:00 BP 123 / 88; Pulse 113; Resp 25; Pulse Ox 97% ; bp 14:00 BP 125 / 95; Pulse 115; Resp 26; Pulse Ox 97% ; bp 15:00 BP 126 / 91; Pulse 114; Resp 26; Pulse Ox 97% ; bp 16:00 BP 128 / 82; Pulse 115; Resp 27; Pulse Ox 97% ; bp MDM: 12:01 Patient medically screened. [facility] 15:17 Data reviewed: vital signs, nurses notes, lab test result(s), EKG, radiologic studies, jr plain films. Data interpreted: Pulse oximetry: on room air is 97 %. Interpretation: normal. Counseling: I had a detailed discussion with the patient and/or guardian regarding: the historical points, exam findings, and any diagnostic results supporting the discharge/admit diagnosis, lab results, radiology results, the need for outpatient follow up, a flexboard operator, to return to the emergency department if symptoms worsen or persist or if there are any questions or concerns that arise at home. ED course: Patient remains mildly tachycardic. Patient is feeling better overall. Has been diuresed. Otherwise hemodynamically stable. BNP elevated but otherwise no other emergent findings on cardiac exam or with labs. Discussed case with Dr. Hickman who agreed with all that we can do right now is to continue beta-blockers and diuresis. Patient has had no hypoxia on room air. Will have patient follow-up with cardiology next couple days and to continue to keep his electrophysiology appointment as well. If patient were to become more short of breath or started to have chest pain or worsening of tachycardia to immediately come back to emergency room. Patient good with the plan at this time.. 01/16 11:31 Order name: Basic Metabolic Panel [facility] 01/16 11:31 Order name: CBC with Diff; Complete Time: 12:32 [facility] 01/16 11:31 Order name: LFT's; Complete Time: 12:51 [facility] 01/16 11:31 Order name: Magnesium; Complete Time: 12:51 [facility] 01/16 11:31 Order name: NT PRO-BNP; Complete Time: 12:51 01/16 11:31 Order name: PT-INR; Complete Time: 12:32 01/16 11:31 Order name: Troponin (emerg Dept Use Only); Complete Time: 12:51 01/16 11:31 Order name: XRAY Chest (1 view); Complete Time: 12:32 01/16 11:31 Order name: EKG; Complete Time: 11:32 01/16 11:31 Order name: Cardiac monitoring; Complete Time: 12:27 01/16 11:31 Order name: Basic Metabolic Panel; Complete Time: 12:51 EDMS 01/16 11:31 Order name: EKG - Nurse/Tech; Complete Time: 12:34 01/16 11:31 Order name: IV Saline Lock; Complete Time: 12:32 01/16 11:31 Order name: Labs collected and sent; Complete Time: 12:31 01/16 11:31 Order name: O2 Per Protocol; Complete Time: 12:31 01/16 11:31 Order name: O2 Sat Monitoring; Complete Time: 12:28 Administered Medications: 13:05 Drug: Lopressor (metoprolol) 5 mg Route: IVP; Site: right forearm; bp 14:47 Follow up: Response: No adverse reaction; No change in condition bp 14:30 Drug: Lasix (furosemide) 40 mg Route: IVP; Site: right forearm; bp 16:14 Follow up: Response: No adverse reaction bp 15:30 Drug: Metoprolol 25 mg Route: PO; bp 16:14 Follow up: Response: No adverse reaction bp Disposition: 17:05 Co-signature as Attending Physician, Carlos Martínez MD. rn Disposition Summary: 01/16/21 15:17 Discharge Ordered Location: Home jr8 Problem: new jr8 Symptoms: have improved jr8 Condition: Stable jr8 Diagnosis - Chronic systolic (congestive) heart failure jr8 - Tachycardia, unspecified jr8 Followup: jr8 - With: Darrin Stoner MD - When: 1 - 2 days - Reason: Recheck today's complaints, Continuance of care, Re-evaluation by your physician Discharge Instructions: - Discharge Summary Sheet jr8 - Heart Failure, Diagnosis jr8 Forms: - Medication Reconciliation Form jr8 - Thank You Letter jr8 - Antibiotic Education jr8 - Prescription Opioid Use jr8 Signatures: Dispatcher [employer] Obdulia Bauman, RN Carlos Moanco MD MD rn Roszak, Josh, PA PA jr8 Mehul Oseguera RN RN bp
--- NOTE | 2021-01-16 15:17 | ER ---
Nurse's Notes [facility] Name: Vamshi Felton Jr Age: 75 yrs Sex: Male : 1945 Arrival Date: 01/16/2021 Time: 10:11 Bed 17 Private MD: Trevin Russ V Diagnosis: Chronic systolic (congestive) heart failure;Tachycardia, unspecified Presentation: 01/16 11:01 Chief complaint: Patient states: has a bad lead on pacemaker/defibrillator, has been iw very SOB and nauseous X 3 weeks, is supposed to have an appt at [facility] Jan 30 but he can't wait that long, sees [place] locally. Coronavirus screen: At this time, the client does not indicate any symptoms associated with coronavirus-19. Ebola Screen: Patient negative for fever greater than or equal to 101.5 degrees Fahrenheit, and additional compatible Ebola Virus Disease symptoms Patient denies exposure to infectious person. Patient denies travel to an Ebola-affected area in the 21 days before illness onset. No symptoms or risks identified at this time. Initial Sepsis Screen: Does the patient meet any 2 criteria? No. Patient's initial sepsis screen is negative. Does the patient have a suspected source of infection? No. Patient's initial sepsis screen is negative. Risk Assessment: Do you want to hurt yourself or someone else? Patient reports no desire to harm self or others. Onset of symptoms was December 31, 2020. 11:01 Method Of Arrival: Ambulatory iw 11:01 Acuity: EARELNE 3 iw Triage Assessment: 11:07 General: Appears in no apparent distress. comfortable, Behavior is cooperative, bp appropriate for age, anxious. Pain: Denies pain. EENT: No deficits noted. Neuro: Level of Consciousness is awake, alert, obeys commands, Oriented to person, place, time, situation, Appropriate for age. Cardiovascular: Rhythm is sinus tachycardia. Respiratory: Reports shortness of breath Onset: The symptoms/episode began/occurred 3 WK AGO, the patient has mild shortness of breath. GI: Abdomen is non-distended, NO EMESIS Reports nausea. : No signs and/or symptoms were reported regarding the genitourinary system. Derm: No deficits noted. Musculoskeletal: No deficits noted. Historical: - Allergies: 11:04 PENICILLINS; iw - PMHx: 11:04 CHF; Hyperlipidemia; Myocardial infarction; iw - PSHx: 11:04 pacemaker/defibrillator; iw - Immunization history:: Client reports receiving the 2nd dose of the Covid vaccine. - Social history:: Smoking status: Patient denies any tobacco usage or history of. Screenin:08 Abuse screen: Denies threats or abuse. Denies injuries from another. Nutritional bp screening: No deficits noted. Tuberculosis screening: No symptoms or risk factors identified. Fall Risk None identified. Assessment: 11:08 General: SEE TRIAGE NOTE. bp 13:00 Respiratory: Airway is patent Respiratory effort is even, unlabored, Breath sounds with bp crackles bilaterally. 14:00 Cardiovascular: Rhythm is ventricular pacer Chest pain is denied. bp 16:14 Reassessment: PT D/C HOME AMBULATORY, DX WITH CHRONIC HEART FAILURE. bp Vital Signs: 11:01 BP 109 / 82; Pulse 113; Resp 18 S; Temp 98.1; Pulse Ox 99% on R/A; iw 12:00 BP 119 / 86; Pulse 114; Resp 23; Pulse Ox 98% ; bp 13:00 BP 123 / 88; Pulse 113; Resp 25; Pulse Ox 97% ; bp 14:00 BP 125 / 95; Pulse 115; Resp 26; Pulse Ox 97% ; bp 15:00 BP 126 / 91; Pulse 114; Resp 26; Pulse Ox 97% ; bp 16:00 BP 128 / 82; Pulse 115; Resp 27; Pulse Ox 97% ; bp ED Course: 10:11 Patient arrived in ED. am2 10:11 Trevin Russ MD is Private Physician. am2 11:00 Inserted saline lock: 20 gauge in right forearm, using aseptic technique. Blood bp collected. 11:04 Triage completed. iw 11:06 Mehul Oseguera, MICAH is Primary Nurse. bp 11:07 Arm band placed on. bp 11:08 Patient has correct armband on for positive identification. Bed in low position. Call bp light in reach. Side rails up X2. 11:30 Yogesh Ba PA is PHCP. jr8 11:30 Anderson Barbosa MD is Attending Physician. jr8 11:31 Attending Physician role handed off by Anderson Barbosa MD jr8 11:31 Carlos Martínez MD is Attending Physician. jr8 12:22 XRAY Chest (1 view) In Process Unspecified. EDMS 15:16 Darrin Stoner MD is Referral Physician. jr8 16:15 No provider procedures requiring assistance completed. IV discontinued, intact, bp bleeding controlled, No redness/swelling at site. Pressure dressing applied. Administered Medications: 13:05 Drug: Lopressor (metoprolol) 5 mg Route: IVP; Site: right forearm; bp 14:47 Follow up: Response: No adverse reaction; No change in condition bp 14:30 Drug: Lasix (furosemide) 40 mg Route: IVP; Site: right forearm; bp 16:14 Follow up: Response: No adverse reaction bp 15:30 Drug: Metoprolol 25 mg Route: PO; bp 16:14 Follow up: Response: No adverse reaction bp Outcome: 15:17 Discharge ordered by MD. jr8 16:15 Discharged to home ambulatory. bp 16:15 Condition: stable 16:15 Discharge instructions given to patient, Instructed on discharge instructions, follow up and referral plans. Demonstrated understanding of instructions, follow-up care. 16:16 Patient left the ED. bp Signatures: Dispatcher [employer] EDMS Obdulia Yost, RN RN iw Yogesh Ba PA PA jr8 Lisbeth Elder am2 Mehul Oseguera RN RN bp
[2021-01-16] MEDS ORDERED: METOPROLOL TAR 25 MG TAB ONE (16:02)
[2021-01-16 16:23] VITALS: TEMP 98.1
[2021-01-16 16:25] VITALS: O2SAT 97
[2021-01-16 16:29] VITALS: BP 128/82
--- NOTE | 2021-01-17 10:07 | EKG ---
Test Date: 2021-01-16 Test Time: 11:48:14 [employer] Closer: BP MEASUREMENT RESULTS: Intervals: Rate: 112 PA: QRSD: 174 QT: 462 QTc: 630 [place]: P: PA: QRS: -79 T: 112 INTERPRETIVE STATEMENTS: Ventricular-paced rhythm Biventricular pacemaker detected Abnormal ECG Compared to ECG 04/02/2020 08:17:41 AV dual-paced complex(es) or rhythm no longer present Electronically Signed On 01-17-21 10:04:51 CDT by Darrin Stoner
== END 2021-01-16 16:16 | disposition home or self-care (01) ==
LOC: ER 10:04
DX: R00.0 Tachycardia, unspecified (principal); I50.22 Chronic systolic (congestive) heart failure; I50.9 Heart failure, unspecified; Z88.0 Allergy status to penicillin; Z95.810 Presence of automatic (implantable) cardiac defibrillator
CPT/HCPCS: 93005; 85025; 80048; 36415; 83735; 85610; 80076; 84484; 83880; 71045; 96375; 96374; 99284; J1940

== ENCOUNTER 2021-01-25 10:17 | Observation (INO) | payer OTHER ==
[2021-01-25 11:00] LABS: Urine Blood Trace-intact (Negative); Urine Glucose Negative (Negative); Urine Protein Negative (Negative); Urine Specific Gravity 1.015 (1.005-1.030)
[2021-01-25 11:15] LABS: Absolute Lymphocytes (CBC) 0.5 K/uL (0.7-4.9); Basophils % 0.6 % (0-1.3); Hematocrit 33.6 % (39.6-49.0); Lymphocytes % 7.3 % (15.3-44.8); MPV 8.4 fL (7.6-11.3); Protime INR 1.76; RBC Red Blood Cell Count 3.33 M/uL (4.33-5.43)
[2021-01-25 11:37] LABS: ALT/SGPT 32 U/L (12-78); AST/SGOT 18 U/L (15-37); Albumin 3.5 g/dL (3.4-5.0); Alkaline Phosphatase 78 U/L (45-117); BUN Blood Urea Nitrogen 22 mg/dL (7-18); Bicarbonate 27 mmol/L (21-32); Bilirubin Direct 0.3 mg/dL (0-0.2); Bilirubin Total 0.9 mg/dL (0.2-1.0); Glucose Level 131 mg/dL (74-106); NT PRO-BNP 5245 pg/mL (<450); Potassium 4.6 mmol/L (3.5-5.1); Protein, Total 6.4 g/dL (6.4-8.2); Sodium Level 139 mmol/L (136-145); Troponin (Emerg Dept Use Only) < 0.02 ng/mL (0.0-0.045)
--- NOTE | 2021-01-25 11:54 | RAD REPORT ---
EXAM DESCRIPTION: RAD - Chest Single View - 01/25/2021 10:37 am CLINICAL HISTORY: pacemaker problem;Chest pain Chest pain. COMPARISON: Chest Single View dated 01/16/2021; Chest Single View dated 04/02/2020; Chest Pa And Lat (2 Views) dated 03/23/2020; Chest Pa And Lat (2 Views) dated 03/16/2020 FINDINGS: Portable technique limits examination quality. Mild pulmonary edema is present. The heart is mildly enlarged with a multi lead pacer/defibrillator d evice. Trace bilateral pleural effusions. No displaced fractures. IMPRESSION: Mild CHF versus volume overload pattern.
--- NOTE | 2021-01-25 13:19 | ER ---
Nurse's Notes [facility] Name: Vamshi Felton Jr Age: 75 yrs Sex: Male : 1945 Arrival Date: 01/25/2021 Time: 10:20 Bed 7 Private MD: Darrin Stoner S; Trevin Russ V Diagnosis: Acute systolic (congestive) heart failure Presentation: 01/25 10:23 Chief complaint: Patient states: my pacemaker started miss firing about 6 weeks ago. tw2 supposedly the crew in [employer] determined it was a bad lead in August. 3 weeks ago [employer] came down to read it in Dr. Stoner'quincy. it is causing me pain and shortness of breath. Coronavirus screen: At this time, the client does not indicate any symptoms associated with coronavirus-19. Ebola Screen: Patient denies travel to an Ebola-affected area in the 21 days before illness onset. Initial Sepsis Screen: Does the patient meet any 2 criteria? No. Patient's initial sepsis screen is negative. Does the patient have a suspected source of infection? No. Patient's initial sepsis screen is negative. Risk Assessment: Do you want to hurt yourself or someone else? Patient reports no desire to harm self or others. Onset of symptoms was January 25, 2021. 10:23 Method Of Arrival: Wheelchair tw2 10:23 Acuity: EARLENE 2 tw2 10:27 Note xray in triage room waiting to take pt to exam room for xray at this time. tw2 Triage Assessment: 10:23 General: Appears in no apparent distress. slender, well groomed, Behavior is calm, tw2 cooperative, appropriate for age. Pain: Complains of pain in chest. Historical: - Allergies: 10:27 PENICILLINS; tw2 10:27 Latex, Natural Rubber; tw2 - Home Meds: 10:27 metoprolol tartrate 50 mg Oral tab 1 tab 2 times per day [Active]; tw2 10:37 atorvastatin 40 mg oral tab 1 tab once daily [Active]; furosemide 20 mg Oral tab 1 tab tw2 once daily [Active]; Metalozone 2.5 mg once daily [Active]; Entresto 24-26 mg oral tab 1 tab once daily [Active]; ferrous sulfate 325 mg (65 mg iron) oral tab 1 tab once daily [Active]; clonazepam 0.5 mg Oral TbDi 1 tab at night [Active]; spironolactone 50 mg Oral tab 1 tab once daily [Active]; pantoprazole 40 mg oral grps 1 packet once daily [Active]; Vitamin C 500 mg Oral tab [Active]; fexofenadine 60 mg Oral cap 60 mg daily [Active]; citalopram 40 mg tab 1 tab once daily [Active]; - PMHx: 10:27 CHF; Hyperlipidemia; Myocardial infarction; tw2 - PSHx: 10:27 Pacemaker/Defibrillator; tw2 - Immunization history:: Client reports receiving the 2nd dose of the Covid vaccine. - Social history:: Smoking status: Patient denies any tobacco usage or history of. Screenin:37 Abuse screen: Denies threats or abuse. Nutritional screening: No deficits noted. tw2 Tuberculosis screening: No symptoms or risk factors identified. Fall Risk None identified. Assessment: 10:30 General: Appears in no apparent distress. comfortable, Behavior is cooperative, bp appropriate for age, anxious. Pain: Denies pain. Neuro: Level of Consciousness is awake, alert, obeys commands, Oriented to person, place, time, situation, Appropriate for age. Cardiovascular: Rhythm is Respiratory: Airway is patent Respiratory effort is even, unlabored, Respiratory pattern is regular, symmetrical. GI: No signs and/or symptoms were reported involving the gastrointestinal system. : No signs and/or symptoms were reported regarding the genitourinary system. EENT: No deficits noted. Derm: No deficits noted. Musculoskeletal: No deficits noted. 12:00 Reassessment: Patient appears in no apparent distress at this time. No changes from bp previously documented assessment. Patient and/or family updated on plan of care and expected duration. Pain level reassessed. 13:00 Reassessment: No changes from previously documented assessment. Patient and/or family bp updated on plan of care and expected duration. Pain level reassessed. 15:00 Reassessment: No changes from previously documented assessment. Patient and/or family bp updated on plan of care and expected duration. Pain level reassessed. ADMIT INITIATED. 16:30 Reassessment: No changes from previously documented assessment. Patient and/or family bp updated on plan of care and expected duration. Pain level reassessed. 18:00 Reassessment: No changes from previously documented assessment. Patient and/or family bp updated on plan of care and expected duration. Pain level reassessed. DR RUSS AT B/S. 20:24 Reassessment: Patient and/or family updated on plan of care and expected duration. Pain ea level reassessed. Patient is alert, oriented x 3, equal unlabored respirations, skin warm/dry/pink. Pt admitted to second floor report called to receiving nurse on second. Vital Signs: 10:23 BP 107 / 75; Pulse 113; Resp 17; Temp 97.8(TE); Pulse Ox 99% on R/A; Weight 71.67 kg tw2 (R); Height 5 ft. 8 in. (172.72 cm); Pain 0/10; 11:00 BP 104 / 73; Pulse 108; Resp 24; Pulse Ox 92% on R/A; bp 12:00 BP 119 / 89; Pulse 109; Resp 16; Pulse Ox 97% ; bp 13:00 BP 112 / 85; Pulse 106; Resp 23; Pulse Ox 96% ; bp 14:00 BP 102 / 77; Pulse 60; Resp 19; Pulse Ox 97% ; bp 15:00 BP 101 / 73; Pulse 60; Resp 21; Pulse Ox 99% ; bp 16:00 BP 113 / 62; Pulse 60; Resp 19; Pulse Ox 98% ; bp 17:00 BP 121 / 74; Pulse 60; Resp 22; Pulse Ox 100% ; bp 18:00 BP 122 / 88; Pulse 111; Resp 22; Pulse Ox 100% ; bp 20:15 BP 128 / 85; Pulse 66; Resp 17; Temp 97.9; Pulse Ox 99% ; ea 10:23 Body Mass Index 24.02 (71.67 kg, 172.72 cm) tw2 ED Course: 10:20 Patient arrived in ED. as 10:20 Trevin Russ MD is Private Physician. as 10:20 Darrin Stoner MD is Private Physician. as 10:27 Triage completed. tw2 10:28 Arm band placed on. tw2 10:31 Yogesh Ba PA is PHCP. jr8 10:31 Jane Kirkpatrick MD is Attending Physician. jr8 10:36 XRAY Chest (1 view) In Process Unspecified. EDMS 10:37 Placed in gown. Bed in low position. pt requested urinal at this time states "you just tw2 get used to going with the lasix". urinal given. 10:39 Mehul Oseguera, RN is Primary Nurse. bp 10:50 Inserted saline lock: 20 gauge in right forearm, using aseptic technique. Blood bp collected. 12:27 initiated transfer to [facility], no bed available at this time, was told by anita Rebolledo that we can admit here, then re initiate and pt will be put on waiting list. 13:18 Trevin Russ MD is Hospitalizing Provider. jr8 14:30 Urine Dipstick-Ancillary Sent. bp 19:52 No provider procedures requiring assistance completed. Patient admitted, IV remains in ea place. Administered Medications: 13:00 Drug: Lasix (furosemide) 60 mg Route: IVP; Site: right forearm; bp 14:29 Follow up: Response: No adverse reaction bp Outcome: 13:18 Decision to Hospitalize by Provider. jr8 19:52 Condition: stable ea 19:52 Discharge instructions given to patient, Instructed on discharge instructions, follow up and referral plans. the need for admit, Demonstrated understanding of instructions, follow-up care, medications. 20:24 Admitted to Med/surg accompanied by nurse, via stretcher, room 204, with chart, Report ea called to Receiving nurse on second floor 20:31 Patient left the ED. ea Signatures: Dispatcher [employer] EDMS Joy Marvin Amelia as Roszak, Josh, PA PA jr8 Jackie Quinones RN RN tw2 Blanca Hernández RN RN Mehul Bliss, RN RN bp Corrections: (The following items were deleted from the chart) 10:46 10:27 Home Meds: atorvastatin 20 mg oral tab 1 tab once daily; tw2 tw2
--- NOTE | 2021-01-25 13:19 | EDPHYS ---
Physician Documentation [facility] Name: Vamshi Felton Jr Age: 75 yrs Sex: Male : 1945 Arrival Date: 01/25/2021 Time: 10:20 Bed 7 Private MD: Darrin Stoner S; Trevin Russ V ED Physician Jane Kirkpatrick HPI: 01/25 11:56 This 75 yrs old Male presents to ER via Wheelchair with complaints of jr8 pacemaker firing. 11:56 This is a 75-year-old male patient that presented to the emergency room for jr8 continuation of shortness of breath and palpitations. Patient stated that he has had misfiring from his pacemaker for some time. Stated that what he believes is malfunctioning and has been interrogated by his buggy man in the past. Supposed to have another appointment on the of this month but feels increasingly more short of breath.. Historical: - Allergies: 10:27 PENICILLINS; tw2 10:27 Latex, Natural Rubber; tw2 - Home Meds: 10:27 metoprolol tartrate 50 mg Oral tab 1 tab 2 times per day [Active]; tw2 10:37 atorvastatin 40 mg oral tab 1 tab once daily [Active]; furosemide 20 mg Oral tab 1 tab tw2 once daily [Active]; Metalozone 2.5 mg once daily [Active]; Entresto 24-26 mg oral tab 1 tab once daily [Active]; ferrous sulfate 325 mg (65 mg iron) oral tab 1 tab once daily [Active]; clonazepam 0.5 mg Oral TbDi 1 tab at night [Active]; spironolactone 50 mg Oral tab 1 tab once daily [Active]; pantoprazole 40 mg oral grps 1 packet once daily [Active]; Vitamin C 500 mg Oral tab [Active]; fexofenadine 60 mg Oral cap 60 mg daily [Active]; citalopram 40 mg tab 1 tab once daily [Active]; - PMHx: 10:27 CHF; Hyperlipidemia; Myocardial infarction; tw2 - PSHx: 10:27 Pacemaker/Defibrillator; tw2 - Immunization history:: Client reports receiving the 2nd dose of the Covid vaccine. - Social history:: Smoking status: Patient denies any tobacco usage or history of. ROS: 11:56 Eyes: Negative for injury, pain, redness, and discharge, ENT: Negative for injury, jr8 pain, and discharge, Neck: Negative for injury, pain, and swelling, Abdomen/GI: Negative for abdominal pain, nausea, vomiting, diarrhea, and constipation, Back: Negative for injury and pain, MS/Extremity: Negative for injury and deformity, Skin: Negative for injury, rash, and discoloration, Neuro: Negative for headache, weakness, numbness, tingling, and seizure. 11:56 Cardiovascular: Positive for palpitations. 11:56 Respiratory: Positive for dyspnea on exertion, shortness of breath. Exam: 11:56 Eyes: Pupils equal round and reactive to light, extra-ocular motions intact. Lids and jr8 lashes normal. Conjunctiva and sclera are non-icteric and not injected. Cornea within normal limits. Periorbital areas with no swelling, redness, or edema. ENT: Nares patent. No nasal discharge, no septal abnormalities noted. Tympanic membranes are normal and external auditory canals are clear. Oropharynx with no redness, swelling, or masses, exudates, or evidence of obstruction, uvula midline. Mucous membranes moist. Neck: Trachea midline, no thyromegaly or masses palpated, and no cervical lymphadenopathy. Supple, full range of motion without nuchal rigidity, or vertebral point tenderness. No Meningismus. Abdomen/GI: Soft, non-tender, with normal bowel sounds. No distension or tympany. No guarding or rebound. No evidence of tenderness throughout. Back: No spinal tenderness. No costovertebral tenderness. Full range of motion. Skin: Warm, dry with normal turgor. Normal color with no rashes, no lesions, and no evidence of cellulitis. MS/ Extremity: Pulses equal, no cyanosis. Neurovascular intact. Full, normal range of motion. Neuro: Awake and alert, GCS 15, oriented to person, place, time, and situation. Cranial nerves II-XII grossly intact. Motor strength 5/5 in all extremities. Sensory grossly intact. Cerebellar exam normal. Normal gait. 11:56 Cardiovascular: Rate: tachycardic, Rhythm: regular, Pulses: Pulses are 2+ in right radial artery and left radial artery. Heart sounds: normal, normal S1and S2, Edema: is not appreciated. 11:56 Respiratory: the patient does not display signs of respiratory distress, Respirations: tachypnea, that is mild, Breath sounds: rales, that are mild, are located in both bases, Respiratory rate: 24 Vital Signs: 10:23 BP 107 / 75; Pulse 113; Resp 17; Temp 97.8(TE); Pulse Ox 99% on R/A; Weight 71.67 kg tw2 (R); Height 5 ft. 8 in. (172.72 cm); Pain 0/10; 11:00 BP 104 / 73; Pulse 108; Resp 24; Pulse Ox 92% on R/A; bp 12:00 BP 119 / 89; Pulse 109; Resp 16; Pulse Ox 97% ; bp 13:00 BP 112 / 85; Pulse 106; Resp 23; Pulse Ox 96% ; bp 14:00 BP 102 / 77; Pulse 60; Resp 19; Pulse Ox 97% ; bp 15:00 BP 101 / 73; Pulse 60; Resp 21; Pulse Ox 99% ; bp 16:00 BP 113 / 62; Pulse 60; Resp 19; Pulse Ox 98% ; bp 17:00 BP 121 / 74; Pulse 60; Resp 22; Pulse Ox 100% ; bp 18:00 BP 122 / 88; Pulse 111; Resp 22; Pulse Ox 100% ; bp 20:15 BP 128 / 85; Pulse 66; Resp 17; Temp 97.9; Pulse Ox 99% ; ea 10:23 Body Mass Index 24.02 (71.67 kg, 172.72 cm) tw2 MDM: 10:31 Patient medically screened. [facility] 13:17 Data reviewed: vital signs, nurses notes, lab test result(s), EKG, radiologic studies, [facility] plain films. Data interpreted: Pulse oximetry: on room air is 96 %. Interpretation: normal. Counseling: I had a detailed discussion with the patient and/or guardian regarding: the historical points, exam findings, and any diagnostic results supporting the discharge/admit diagnosis, lab results, radiology results, the need for further work-up and treatment in the hospital. ED course: Attempted to transfer patient to [facility] but was unsuccessful as there full. Patient continues to have mild tachypnea and dyspnea with exertion and at rest. Will admit for volume overload and diuresis over the next [address] Russ. 01/25 10:21 Order name: Basic Metabolic Panel; Complete Time: 12:00 ma2 01/25 10:21 Order name: CBC with Diff; Complete Time: 11:33 ma2 01/25 10:21 Order name: LFT's; Complete Time: 12:00 id2 01/25 10:21 Order name: Magnesium; Complete Time: 12:00 id2 01/25 10:21 Order name: NT PRO-BNP; Complete Time: 12:00 ma2 01/25 10:21 Order name: PT-INR; Complete Time: 11:33 id2 01/25 10:21 Order name: Troponin (emerg Dept Use Only); Complete Time: 12:00 ma2 01/25 10:21 Order name: XRAY Chest (1 view); Complete Time: 12:00 id2 01/25 10:21 Order name: EKG; Complete Time: 10:22 ma2 01/25 10:21 Order name: Cardiac monitoring; Complete Time: 10:51 ma2 01/25 11:00 Order name: Urine Dipstick-Ancillary EDMS 01/25 13:31 Order name: SARS-COV-2 RT PCR; Complete Time: 13:38 EDKS 01/25 10:21 Order name: EKG - Nurse/Tech; Complete Time: 10:51 ma2 01/25 10:21 Order name: IV Saline Lock; Complete Time: 11:01 ma2 01/25 10:21 Order name: Labs collected and sent; Complete Time: 11:01 id2 01/25 10:21 Order name: O2 Per Protocol; Complete Time: 10:40 ma2 01/25 10:21 Order name: O2 Sat Monitoring; Complete Time: 10:40 ma2 Administered Medications: 13:00 Drug: Lasix (furosemide) 60 mg Route: IVP; Site: right forearm; bp 14:29 Follow up: Response: No adverse reaction bp Disposition Summary: 01/25/21 13:18 Hospitalization Ordered Hospitalization Status: Observation jr8 Provider: Trevin Russ Location: Telemetry/MedSur (observation) [facility] Condition: Stable jr8 Problem: new jr8 Symptoms: have improved jr8 Bed/Room Type: Standard [facility] Room Assignment: 204(01/25/21 19:46) tl1 Diagnosis - Acute systolic (congestive) heart failure [facility] Forms: - Medication Reconciliation Form jr8 - SBAR form jr8 Addendum: 01/28/2021 07:17 Co-signature as Attending Physician, Jane Kirkpatrick MD PA/[employer]PER[employer]'s history reviewed, m a2 patient interviewed, and examined. I agree with assessment and care plan and confirm the diagnosis (es) above. Signatures: Dispatcher [employer] EDKS Yogesh Ba PA PA jr8 Sendy Martines RN RN tl1 Jackie Quinones RN RN tw2 Mehul Oseguera RN RN Jane Kirkpatrick MD MD ma2 Corrections: (The following items were deleted from the chart) 01/25 10:46 10:27 Home Meds: atorvastatin 20 mg oral tab 1 tab once daily; 12:30 11:49 CORONAVIRUS+MR.LAB.BRZ ordered. [facility] EDKS 19:46 13:18 jr8 tl1
[2021-01-25] MEDS ORDERED: FUROSEMIDE 100 MG/10 ML VIAL IV ONE (13:38)
[2021-01-25] MEDS ORDERED: ALBUTEROL 2.5 MG/3 ML NEB SOL NEB PRN (20:24)
[2021-01-25] MEDS ORDERED: IPRATROPIUM BROM 0.5MG/2.5ML NEB PRN (20:24)
[2021-01-25] MEDS ORDERED: ONDANSETRON 4 MG/2 ML VIAL IV PRN (20:24)
[2021-01-25] MEDS ORDERED: ACETAMINOPHEN 500 MG TAB PO PRN (20:24)
--- NOTE | 2021-01-25 21:12 | P.SSS ---
Patient History Date of Service: 01/25/21 Reason for admission: DYSPNEA History of Present Illness: ME. MUNOZ HAS RAPID A FIB FOR LAST 3 WEEKS. HE HAS A PACEMAKER THAT IS 15 YEARS OLD AND HAS ONE BROKEN LEAD. IT IS NOT ABLE TO KEEP HEART RATE CONTROLLED. MEDICATIONS HAVE FAILED. DR. BROWNLEE HAS ADVISED A NEW PACEMAKER BUT PER PATIENT HE IS OUT OF TOWN AND WILL BE ABLE TO SEE HIM ON February. I CALLED DR. PEREYRA I HAD HIS NUMBER AND ADVISED HIM TO GET MR. MUNOZ HELP EARLIER. DR. PEREYRA WILL BE ABLE TO SEE HIM TOMORROW AFTER DISCHARGE. MR. MUNOZ GOT 60 MG OF LASIX IV BY THE PA AND IS DOING SOME BETTER. HE IS ALSO ON ENTRESTO AND SPIRONOLACTONE IN ADDITION TO BETA CAROLINE. Allergies Latex, Natural Rubber Allergy (Verified 04/02/20 13:56) Shortness of breath Penicillins Allergy (Verified 07/30/14 08:34) DIARRHEA antihistamines Adverse Reaction (Uncoded 03/23/20 13:14) PALPITATIONS Home medications list reviewed: Yes Home Medications: Atorvastatin Calcium [Lipitor] 40 mg PO DAILY 07/30/14 Clonazepam 0.5 mg PO PRN 07/30/14 Clopidogrel Bisulfate [Clopidogrel] 1 tab PO DAILY 07/30/14 Fexofenadine HCl [Joycelyn Allergy] 60 mg PO DAILY 07/30/14 Furosemide 1 tab PO Q12H 07/30/14 Metoprolol Tartrate 50 mg PO BID 07/30/14 Potassium Chloride 5 meq PO DAILY 07/30/14 Acetaminophen [Tylenol] 1 tab PO PRN PRN 03/23/20 Ascorbic Acid [Vitamin C*] 500 mg PO [id number] 03/23/20 Ferrous Sulfate [Ferrous Sulfate*] 65 mg PO DAILY 03/23/20 Pantoprazole [Protonix Tab*] 40 mg PO DAILY 03/23/20 Rivaroxaban [Xarelto*] 20 mg PO BEDTIME 03/23/20 Sacubitril/Valsartan [Entresto 24 mg-26 mg Tablet] 1 tab PO DAILY 03/23/20 Citalopram [Celexa*] 40 mg PO DAILY 03/24/20 Spironolactone [Aldactone*] 50 mg PO DAILY tab 04/03/20 metOLazone [Zaroxolyn*] 2.5 mg PO DAILY@0830 tab 04/03/20 - Past Medical/Surgical History Diabetic: No -: Prostate CA -: Haert attack 2008 -: Heart Stent 2008 -: Duodenal ulcer -: Afib -: CHF -: General Panic attack -: Pacemaker/Defib 2008 -: Parathyroid removal 2012 - Family History Mother -: Heart disease Notes: AFIB, CHF Father -: Diabetes - Social History Alcohol use: No CD- Drugs: No Caffeine use: Yes Review of Systems 10-point ROS is otherwise unremarkable General: Weakness, Malaise Respiratory: Shortness of Breath Physical Examination - Vital Signs Temperature: 98.1 F Blood Pressure: 129/71 Pulse: 62 Respirations: 16 Pulse Ox (%): 96 - Physical Exam General: Oriented x3, Mild distress HEENT: Atraumatic, PERRLA, Mucous membr. moist/pink, EOMI, Sclerae nonicteric Neck: Supple, 2+ carotid pulse no bruit, No LAD, Without JVD or thyroid abnormality Respiratory: Clear to auscultation bilaterally, Normal air movement Cardiovascular: Irregular heart rate/rhythm Gastrointestinal: Normal bowel sounds, No tenderness Musculoskeletal: No tenderness Integumentary: No rashes Neurological: Normal gait, Normal speech, Normal strength at 5/5 x4 extr, Normal tone, Normal affect Lymphatics: No axilla or inguinal lymphadenopathy - Studies Laboratory Data (last 24 hrs) 01/25/21 10:50: PT 20.4 H, INR 1.76 01/25/21 10:50: WBC 7.10 D, Hgb 11.2 L, Hct 33.6 L, Plt Count 246 01/25/21 10:50: Sodium 139, Potassium 4.6, BUN 22 H, Creatinine 1.28, Glucose 131 H, Magnesium 2.0, Total Bilirubin 0.9, AST 18, ALT 32, Alkaline Phosphatase 78 - Diagnosis (Problem(s)) (1) Rapid atrial fibrillation Current Visit: Yes Status: Chronic Plan: DR. PEREYRA AND DR. BROWNLEE WILL SEE HIM IN AM AFTER DISCHARGE. HE IS STABLE FOR NOW. (2) Systolic CHF, acute on chronic Current Visit: No Status: Chronic Plan: RAPID A FIB IS STABLE. HE HAS NORMAL BP. LASIX V SMALL DOSE WILL HELP . CONTNUE SPIRONOLACTONE AND ENDRESTO. STOP KCL PO. - Disposition Disposition: ROUTINE DISCHARGE
[2021-01-25] MEDS ORDERED: POTASSIUM CL SA 10 MEQ TAB PO SCH (21:15)
[2021-01-25] MEDS: FUROSEMIDE 20 MG/ 2ML VIAL IV SCH (22:07)
[2021-01-25] MEDS: SACUBITRIL/VALSARTAN 24/26 MG TAB PO SCH (22:07)
[2021-01-25 22:26] VITALS: BMI 22.7
[2021-01-26 04:57] LABS: Absolute Lymphocytes (CBC) 0.9 K/uL (0.7-4.9); Basophils % 0.7 % (0-1.3); Hematocrit 35.3 % (39.6-49.0); Lymphocytes % 11.4 % (15.3-44.8); MPV 8.2 fL (7.6-11.3); RBC Red Blood Cell Count 3.47 M/uL (4.33-5.43)
[2021-01-26 05:05] LABS: Potassium 4.4 mmol/L (3.5-5.1)
[2021-01-26] MEDS: FUROSEMIDE 20 MG/ 2ML VIAL IV SCH (08:40)
[2021-01-26] MEDS: SACUBITRIL/VALSARTAN 24/26 MG TAB PO SCH (08:41)
[2021-01-26 08:42] VITALS: BP 122/57
[2021-01-26] MEDS ORDERED: SPIRONOLACTONE 25 MG TABLET PO SCH (09:00)
[2021-01-26] MEDS ORDERED: METOPROLOL TAR 50 MG TAB PO SCH (09:00)
[2021-01-26 09:19] VITALS: O2SAT 100
[2021-01-26 11:01] VITALS: TEMP 97.8
[2021-01-26] MEDS ORDERED: RIVAROXABAN 10 MG TABLET PO SCH (21:00)
== END 2021-01-26 10:25 | disposition home or self-care (01) ==
LOC: ER 10:17 → ERHOLD 15:41 → 2ND 20:21
PROVIDERS: ADMIT Internal Medicine; ATTEND Internal Medicine
DX: I48.20 Chronic atrial fibrillation, unspecified (principal); I50.23 Acute on chronic systolic (congestive) heart failure; E78.5 Hyperlipidemia, unspecified; I25.2 Old myocardial infarction; K26.9 Duodenal ulcer, unspecified as acute or chronic, without hemorrhage or perforation; E89.2 Postprocedural hypoparathyroidism; Z95.0 Presence of cardiac pacemaker; Z95.5 Presence of coronary angioplasty implant and graft; Z79.01 Long term (current) use of anticoagulants; Z88.0 Allergy status to penicillin; Z88.8 Allergy status to other drugs, medicaments and biological substances; Z91.040 Latex allergy status; Z20.822 Contact with and (suspected) exposure to COVID-19; Z85.46 Personal history of malignant neoplasm of prostate; Z82.49 Family history of ischemic heart disease and other diseases of the circulatory system; Z83.3 Family history of diabetes mellitus
CPT/HCPCS: 93005; 85025 ×2; 80048 ×2; 36415; 83735; 85610; 80076; 81003; 84484 ×2; 83880; 71045; 96374; 99285; U0003; J1940 ×2; G0378 ×3

== ENCOUNTER 2021-12-02 18:00 | Emergency (ER) | payer OTHER ==
[2021-12-02 20:10] LABS: Absolute Lymphocytes (CBC) 0.6 K/uL (0.7-4.9); Lymphocytes % 6.8 % (15.3-44.8); MPV 7.8 fL (7.6-11.3); RBC Red Blood Cell Count 3.44 M/uL (4.33-5.43)
[2021-12-02 20:27] LABS: Bilirubin Total 1.2 mg/dL (0.2-1.0); Potassium 4.1 mmol/L (3.5-5.1)
[2021-12-02 20:28] LABS: Albumin 3.4 g/dL (3.4-5.0); Protein, Total 6.7 g/dL (6.4-8.2)
--- NOTE | 2021-12-02 20:30 | RAD REPORT ---
EXAM DESCRIPTION: RAD - Pelvis - 12/02/2021 7:47 pm CLINICAL HISTORY: Pelvic pain status post injury FINDINGS: No fracture or dislocation is seen. If the patient continues to have symptoms to suggest an occult fracture then MRI would be recommended
--- NOTE | 2021-12-02 20:32 | RAD REPORT ---
EXAM DESCRIPTION: RAD - Elbow Left 3 View - 12/02/2021 7:47 pm CLINICAL HISTORY: Left elbow pain status post trauma FINDINGS: Large avulsion fracture ulnar olecranon. No dislocation
--- NOTE | 2021-12-02 21:42 | EDPHYS ---
Physician Documentation [facility] Name: Vamshi Felton Jr Age: 76 yrs Sex: Male : 1945 Arrival Date: 12/02/2021 Time: 18:06 Bed 6 Private MD: ED Physician Anat Floyd HPI: 12/02 21:38 This 76 yrs old Male presents to ER via Wheelchair with complaints of Fall Injury, Arm jmm Injury. 21:38 Details of fall: The patient fell from an upright position, while walking. Onset: The jmm symptoms/episode began/occurred acutely, 6 day(s) ago. This is a 76-year-old male with history of CHF, hyperlipidemia, SD the presents emerged department with complaints of swelling to the left upper extremity. Patient states he initially injured himself on the of this month while traveling out of the country. Patient was diagnosed with a fracture. Patient states he still has pain in his pelvis when he walks. Patient denies any other known injury.. Historical: - Allergies: 18:17 Latex, Natural Rubber; hb 18:17 PENICILLINS; hb - PMHx: 18:17 CHF; Hyperlipidemia; Myocardial infarction; hb - PSHx: 18:17 Pacemaker/Defibrillator; hb - Immunization history:: Adult Immunizations up to date. - Social history:: Smoking status: Patient denies any tobacco usage or history of. ROS: 21:38 Constitutional: Negative for fever, chills, and weight loss, Cardiovascular: Negative jmm for chest pain, palpitations, and edema, Respiratory: Negative for shortness of breath, cough, wheezing, and pleuritic chest pain. 21:38 MS/extremity: Positive for injury or acute deformity, pain. 21:38 All other systems are negative. Exam: 21:38 Constitutional: This is a well developed, well nourished patient who is awake, alert, jmm and in no acute distress. Head/Face: atraumatic. Eyes: EOMI, no conjunctival erythema appreciated ENT: Moist Mucus Membranes Neck: Trachea midline, Supple Chest/axilla: Normal chest wall appearance and motion. Cardiovascular: Regular rate and rhythm. No edema appreciated Respiratory: Normal respirations, no respiratory distress appreciated Abdomen/GI: Non distended Back: Normal ROM 21:38 Musculoskeletal/extremity: Splint noted to the left upper extremity, once the splint was removed swelling noted to the olecranon region, full radial pulse, painful flexion extension noted to the left elbow. Compartments are soft, neurovascular intact. 21:38 Skin: Ecchymosis noted to the left forearm extending into the hands, mild induration noted to the left elbow around the olecranon region. 21:38 Neuro: Orientation: is normal, Mentation: is normal, Memory: is normal. 21:38 Psych: Behavior/mood is pleasant, cooperative. Vital Signs: 18:14 BP 143 / 78; Pulse 81; Resp 16; Temp 99.2; Pulse Ox 100% on R/A; Weight 72.57 kg; hb Height 5 ft. 6 in. (167.64 cm); Pain 4/10; 20:15 BP 143 / 73; Pulse 75; Resp 16; Pulse Ox 99% on R/A; jb4 21:00 BP 133 / 75; Pulse 73; Resp 16; Pulse Ox 97% on R/A; jb4 22:00 BP 148 / 92; Pulse 78; Resp 16; Pulse Ox 99% on R/A; jb4 18:14 Body Mass Index 25.82 (72.57 kg, 167.64 cm) hb MDM: 18:35 Patient medically screened. elmo 21:40 Data reviewed: vital signs, nurses notes. Counseling: I had a detailed discussion with elmo the patient and/or guardian regarding: the historical points, exam findings, and any diagnostic results supporting the discharge/admit diagnosis, radiology results, the need for outpatient follow up, to return to the emergency department if symptoms worsen or persist or if there are any questions or concerns that arise at home. ED course: X-ray revealed revealed fracture of the left olecranon. No fractures noted on pelvic x-ray. Patient was resplinted with a left posterior elbow splint. Was checked, patient is neurovascular intact. Patient advised follow with orthopedics otherwise given strict return precautions. Patient understood and agrees plan of care. 12/02 18:38 Order name: CBC with Diff; Complete Time: 20:17 [facility] 12/02 18:38 Order name: CMP; Complete Time: 20:30 [facility] 12/02 18:38 Order name: Elbow Left 3 View XRAY; Complete Time: 20:48 [facility] 12/02 18:38 Order name: Pelvis XRAY; Complete Time: 20:48 [facility] 12/02 18:46 Order name: Lactate; Complete Time: 20:30 [facility] 12/02 18:46 Order name: Blood Culture Adult (2) [facility] 12/02 18:38 Order name: Saline Lock; Complete Time: 20:21 [facility] 12/02 20:49 Order name: Posterior Elbow Splint; Complete Time: 21:18 [facility] 12/02 20:49 Order name: Sling; Complete Time: 21:03 [facility] Administered Medications: No medications were administered Disposition: 12/03 14:43 Co-signature as Attending Physician, Anat Floyd MD. Co-signature as Attending sd2 Physician, Anat Floyd MD STAFF ATTESTATION STATEMENT I was immediately available on-site in the Emergency Department for consultation in the care of the patient. Anat Floyd MD. Disposition Summary: 12/02/21 21:42 Discharge Ordered Location: Home [facility] Condition: Stable [facility] Diagnosis - Olecranon fracture [facility] Followup: [facility] - With: Juan Manuel Lorenzo MD - When: 2 - 3 days - Reason: Recheck today's complaints, Continuance of care, Re-evaluation by your physician Discharge Instructions: - Discharge Summary Sheet [facility] - Olecranon Fracture [facility] Forms: - Medication Reconciliation Form [facility] - Thank You Letter [facility] - Antibiotic Education [facility] - Prescription Opioid Use [facility] Prescriptions: - Ultracet 37.5-325 mg Oral Tablet - take 1 tablet by ORAL route every 6 hours - for up to 5 days; do not exceed 8 jmm tablets per day.; 12 tablet; Refills: 0, Product Selection Permitted - Doxycycline Hyclate 100 mg Oral Tablet - take 1 tablet by ORAL route every 12 hours; 20 tablet; Refills: 0, Product [facility] Selection Permitted Signatures: Dispatcher [employer] EDDevante Hearn PA PA jmm Baxter, Heather, RN RN hb Dunlop, Stephanie, MD MD sd2
--- NOTE | 2021-12-02 21:42 | ER ---
Nurse's Notes [facility] Name: Vamshi Felton Jr Age: 76 yrs Sex: Male : 1945 Arrival Date: 12/02/2021 Time: 18:06 Bed 6 Private MD: Diagnosis: Olecranon fracture Presentation: 12/02 18:14 Chief complaint: Left arm and left hip pain after mechanical fall 1 week ago. [place] incident, reports left arm is fractured, currently in a splint, c/o difficulty walking due to pain, just returned to country, has not seen ortho yet. Coronavirus screen: At this time, the client does not indicate any symptoms associated with coronavirus-19. Ebola Screen: No symptoms or risks identified at this time. Initial Sepsis Screen: Does the patient meet any 2 criteria? No. Patient's initial sepsis screen is negative. Does the patient have a suspected source of infection? No. Patient's initial sepsis screen is negative. Risk Assessment: Do you want to hurt yourself or someone else? Patient reports no desire to harm self or others. Onset of symptoms was November 26, 2021. 18:14 Method Of Arrival: Wheelchair hb 18:14 Acuity: EARLENE 3 hb Historical: - Allergies: 18:17 Latex, Natural Rubber; hb 18:17 PENICILLINS; hb - PMHx: 18:17 CHF; Hyperlipidemia; Myocardial infarction; hb - PSHx: 18:17 Pacemaker/Defibrillator; hb - Immunization history:: Adult Immunizations up to date. - Social history:: Smoking status: Patient denies any tobacco usage or history of. Screenin:30 Abuse screen: Denies threats or abuse. Nutritional screening: No deficits noted. jb4 Tuberculosis screening: No symptoms or risk factors identified. Fall Risk None identified. Assessment: 19:30 General: Appears in no apparent distress. comfortable, Behavior is calm, cooperative. jb4 Pain: Complains of pain in left arm Pain does not radiate. Pain currently is 4 out of 10 on a pain scale. Neuro: Level of Consciousness is awake, alert, obeys commands, Oriented to person, place, time, situation. Cardiovascular: Patient's skin is warm and dry. Respiratory: Airway is patent Respiratory effort is even, unlabored, Respiratory pattern is regular, symmetrical. Derm: Skin is intact, Bruising that is bright red, dark purple, yellow, on left hand, left upper arm and left forearm. Musculoskeletal: Circulation, motion, and sensation intact. 21:00 Reassessment: Patient appears in no apparent distress at this time. Patient and/or jb4 family updated on plan of care and expected duration. Pain level reassessed. Patient is alert, oriented x 3, equal unlabored respirations, skin warm/dry/pink. 22:00 Reassessment: Patient appears in no apparent distress at this time. Patient and/or jb4 family updated on plan of care and expected duration. Pain level reassessed. Patient is alert, oriented x 3, equal unlabored respirations, skin warm/dry/pink. Vital Signs: 18:14 BP 143 / 78; Pulse 81; Resp 16; Temp 99.2; Pulse Ox 100% on R/A; Weight 72.57 kg; hb Height 5 ft. 6 in. (167.64 cm); Pain 4/10; 20:15 BP 143 / 73; Pulse 75; Resp 16; Pulse Ox 99% on R/A; jb4 21:00 BP 133 / 75; Pulse 73; Resp 16; Pulse Ox 97% on R/A; jb4 22:00 BP 148 / 92; Pulse 78; Resp 16; Pulse Ox 99% on R/A; jb4 18:14 Body Mass Index 25.82 (72.57 kg, 167.64 cm) ED Course: 18:06 Patient arrived in ED. mr 18:17 Triage completed. hb 18:17 Arm band placed on. hb 18:22 Devante Little PA is PHCP. [facility] 18:22 Anat Floyd MD is Attending Physician. [facility] 19:30 Patient has correct armband on for positive identification. Bed in low position. Call jb4 light in reach. Side rails up X 1. Client placed on continuous cardiac and pulse oximetry monitoring. NIBP monitoring applied. 19:49 Elbow Left 3 View XRAY In Process Unspecified. EDMS 19:49 Pelvis XRAY In Process Unspecified. EDMS 19:55 Inserted saline lock: 18 gauge in right antecubital area, using aseptic technique. jb4 Blood collected. 19:55 Initial lab(s) drawn, by co, sent to lab. First set of blood cultures drawn by me. jb4 20:12 Amor Vicente, RN is Primary Nurse. jb4 21:18 Orthoglass splint: posterior long arm splint applied to the right arm. mh5 21:41 Juan Manuel Lorenzo MD is Referral Physician. [facility] 22:15 No provider procedures requiring assistance completed. IV discontinued, intact, jb4 bleeding controlled, No redness/swelling at site. Pressure dressing applied. Administered Medications: No medications were administered Medication: 19:30 VIS not applicable for this client. jb4 Outcome: 21:42 Discharge ordered by . [facility] 22:15 Discharged to home via wheelchair, with family. jb4 22:15 Condition: stable 22:15 Discharge instructions given to patient, Instructed on discharge instructions, follow up and referral plans. medication usage, given resources for rehab hospitals. Demonstrated understanding of instructions, follow-up care, medications, Prescriptions given X 2. 22:16 Patient left the ED. mh5 Signatures: Dispatcher [employer] EDMS Devante Little PA PA jmm Rivera, Mary mr Baxter, Heather, RN RN hb Bryson, James, RN RN Leandra Sewell [facility] Corrections: (The following items were deleted from the chart) 18:22 18:14 Chief complaint: Left arm and left hip pain after mechanical fall 1 week ago. Pt hb was out of the country, left arm is in a cast, c/o difficulty walking due to pain. hb 18:22 18:14 Chief complaint: Left arm and left hip pain after mechanical fall 1 week ago. hb Accident happened out of the [facility], reports left arm is fractured, currently in a splint, c/o difficulty walking due to pain. Has not seen ortho yet. hb 18:23 18:14 Chief complaint: Left arm and left hip pain after mechanical fall 1 week ago. Was [place] of country [place] time of incident, reports left arm is fractured, currently in a splint, c/o difficulty walking due to pain. Has not seen ortho yet. hb 18:24 18:14 Chief complaint: Left arm and left hip pain after mechanical fall 1 week ago. Was hb out of country [place] time of incident, reports left arm is fractured, currently in a splint, c/o difficulty walking due to pain, just returned to [facility], has not seen ortho yet. hb
[2021-12-02 22:43] VITALS: TEMP 99.2
[2021-12-02 22:46] VITALS: BP 143/73; O2SAT 99
== END 2021-12-02 22:16 | disposition home or self-care (01) ==
LOC: ER 18:00
DX: S52.022A Displaced fracture of olecranon process without intraarticular extension of left ulna, initial encounter for closed fracture (principal); R10.2 Pelvic and perineal pain; I50.9 Heart failure, unspecified; E78.5 Hyperlipidemia, unspecified; I25.2 Old myocardial infarction; Z95.810 Presence of automatic (implantable) cardiac defibrillator; Z88.0 Allergy status to penicillin; Z91.040 Latex allergy status; Z91.048 Other nonmedicinal substance allergy status
CPT/HCPCS: 36415; 72170; 80053; 83605; 85025; 87040; 99284

== ENCOUNTER 2021-12-08 08:46 | Day surgery (SDC) | payer OTHER ==
[2021-12-06 11:30] LABS: SARS-CoV-2 Antigen Rapid Res Positive (Negative)
[~2021-12-08 08:46] MED LIST: CLINDAMYCIN 900MG/D5W 900 MG/50 ML IVPB IV SCH
[2021-12-08] MEDS ORDERED: Ringers Lactate 1,000 ML IV ONE (09:11)
[2021-12-08] MEDS ORDERED: MIDAZOLAM HCL 2 MG/2 ML INJ ONE (10:22)
[2021-12-08] MEDS ORDERED: ROPLVACAINE HCL 20 ML ONE (10:22)
[2021-12-08] MEDS ORDERED: EPINEPHRINE/PF 1 MG/ML AMP ONE (10:22)
[2021-12-08] MEDS ORDERED: dexAMETHasone 10 MG/ML VIAL ONE (10:22)
[2021-12-08] MEDS ORDERED: FENTANYL CITR 100 MCG/2 ML ONE (10:22)
[2021-12-08] MEDS ORDERED: LIDOCAINE 1% MPF 5 ML VIAL ONE (10:22)
[2021-12-08] MEDS ORDERED: LIDOCAINE 2% MPF 5 ML VIAL ONE (11:21)
[2021-12-08] MEDS ORDERED: propofoL 200 MG/20 ML VIAL IV ONE (11:21)
[2021-12-08] MEDS ORDERED: EPHEDRINE SULF 50 MG/ML VIAL ONE (12:30)
--- NOTE | 2021-12-08 13:00 | RAD REPORT ---
EXAM DESCRIPTION: RAD - Elbow Left 2 View - 12/08/2021 12:53 pm CLINICAL HISTORY: Ulnar fracture FINDINGS: Fifteen fluoroscopic intraoperative spot images obtained. Fluoroscopy time 0.4 minutes. Plate and screws affix an ulnar fracture. Surgery performed by Dr. Lorenzo
[2021-12-08] MEDS ORDERED: ONDANSETRON 4 MG/2 ML VIAL ONE (13:19)
[2021-12-08 13:46] VITALS: TEMP 98.1
[2021-12-08 14:26] VITALS: BP 115/81; O2SAT 95
--- NOTE | 2021-12-09 01:03 | OP ---
Date of Procedure: 12/08/2021 Surgeon: Juan Manuel Lorenzo MD Preoperative Diagnosis: Left displaced olecranon fracture with comminution. Postoperative Diagnosis: Left displaced olecranon fracture with comminution. Procedure: Left olecranon fracture open reduction and internal fixation using the Acumed extended ol ecranon plate. Estimated Blood Loss: 10 cc. Complications: There were no complications. Specimen: No pathology specimen sent. Indications For Operation: Mr. Felton is a 76-year-old male who unfortunately was visiting [place] an d fell injuring his left upper extremity. He had an abrasion there as well as a highly displaced com minuted olecranon fracture. He came back from [place] and met me in my office where he was examined. The abrasion was seen. However, it appeared to be somewhat away from the planned incision line. X- rays were reviewed, which do reveal a comminuted displaced olecranon fracture. Risks, benefits, and alternatives of different methods of treating was discussed with him. He states he understands thing s as presented and wished to proceed. Description Of Procedure: The patient was taken to the operating room and placed in supine position. General anesthesia was obtained by staff. Following this, a well-padded tourniquet was placed on t he superior left arm. The splint was removed. He does have an abrasion which does appear to have a little bit of exudate and granulation tissue. There is definitely no sign of infection. His arm was then prepped and draped in usual sterile fashion for an open wound to really clean this abrasion wel l. After this, a Tegaderm was placed over the abrasion. We were able to avoid the abrasion with our incision, however, slightly more volar than normal to avoid it. However, we were still able to easi ly progress through skin and soft tissues with meticulous hemostasis being maintained using Bovie anisa ctrocautery. This leads to the shaft of the ulna, which was then exposed using a very thick full-thi ckness flaps. This leads down to the fracture site, which had a significant amount of hematoma as we ll as joint fluid which were removed. There was significant amount of clotted blood and the perioste um was removed from the edge. The edges of the fracture and the more proximal fragment were also exp osed. After this provisional reduction was performed and the plate was placed posterior to the proxi mal fragment holding it slightly, and a fairly reduced position. The plate was then applied using th e toggle screw, at the most distal aspect of the toggle screw. This allows for control of the plate as the plate was then snugged up towards the more proximal fragment through a small window made in th e triceps to allow for better fit of the longer tail. It was secured with a K-wire. The arm was ext ended with pressure, bringing the toggle bottle tester and reducing it. It appeared to be well reduced on both the C-arm as well as visually inspecting it. After this, the toggle screw was then tightened , locking it in the more compressed position. A home-run screw was then placed, care being taken to avoid entering the elbow joint itself and it did appear to be low enough to not enter the articular a lala. After this, the 2 remaining tail screws were then placed in locking fashion. This was followed by placement of an additional distal screw. Two locking peg screws were then placed, the most proxi mal ones being useful, the more distal ones being probably directly in the fracture site. The remain selina of the distal screws were then placed and it is assessed on both AP and lateral x-rays. He does have full range of motion of the elbow, perhaps lacking maybe a degree or two from full extension. T he wound was then irrigated and the skin was closed using interrupted Vicryl sutures, followed by sta ples. The patient was then placed in a well-padded sterile dressing which was nonstick over the roxie juan j. All this being covered with an Aquacel, which has been slightly modified to be able to not nila ly any adhesion to the abrasion. He is then placed in an extremely well-padded Orthoplast splint in a position of 90 degrees of elbow flexion. He is awakened and taken to recovery room in good condition. No complications. SE/MODL Voice ID: [id number] Report ID: [id number]
== END 2021-12-08 14:25 | disposition home or self-care (01) ==
LOC: OR 08:46
PROVIDERS: ATTEND Orthopaedic Surgery
PROC: 0PSL04Z Reposition Left Ulna with Internal Fixation Device, Open Approach (ICD-10-PCS; principal; 2021-12-08 12:00)
DX: S52.022A Displaced fracture of olecranon process without intraarticular extension of left ulna, initial encounter for closed fracture (principal); M25.522 Pain in left elbow; Z88.2 Allergy status to sulfonamides; Z88.0 Allergy status to penicillin; Z91.09 Other allergy status, other than to drugs and biological substances; U07.1 COVID-19
CPT/HCPCS: 36415; 73070; 87811; 24685; J2704; J0171; J2250; J3010; J1100; J2795; J7120; J2405

== ENCOUNTER 2022-01-07 08:01 | Emergency (ER) | payer OTHER ==
--- OUTSIDE RECORDS SUMMARY | 2022-01-07 08:03 | XMS REPORT | Continuity of Care Document ---
:1945 Author Organization [facility] t Address [address] [place] [address] Care Team Providers Name Role Phone Trevin Russ Attending Clinician Unavailable Payers Payer Name Policy Type Policy Number Effective Date Expiration Date S ource [employer] MEDICARE HMO [id number] 2020 POS PPO 00:00:00 Problems This patient has no known problems. Allergies, Adverse Reactions, Alerts This patient has no known allergies or adverse reactions. Social History Social Habit Start Date Stop Date Quantity Comments Source Sex Assigned At [address] [facility] Medications This patient has no known medications. Immunizations Ordered Immunization Filled Immunization Date Status Commen ts Source Name Name Covid-19 Vaccine 2020-06-[address] [facility] MRNA (PF) 12yr+ 00:00:00 Medical C enter (Pfizer/BioNTech)(IM M601) Procedures This patient has no known procedures. Plan of Care Planned Activity Planned Date Details Comments Source Future Scheduled 2022-01-04 INFLUENZA VACCINE (#1) [facility] 00:00:00 [code = INFLUENZA Medical Ce nter VACCINE (#1)] Future Scheduled 2021-05-[address] [facility] 00:00:00 WELLNESS (YEAR 2 or Medical Center FIRST YEAR if no IPPE) [code = MEDICARE ANNUAL WELLNESS (YEAR 2 or FIRST YEAR if no IPPE)] Future Scheduled 2021-05-[address] [facility] 00:00:00 (12+) [code = Medical Center DEPRESSION SCREENING (12+)] Future Scheduled 2021-05-06 FALLS RISK SCREENING [facility] 00:00:00 [code = FALLS RISK Medical C enter SCREENING] Future Scheduled 2020-07-20 COVID-19 VACCINE (2 - [facility] 00:00:00 Pfizer series) [code = Medic al Center COVID-19 VACCINE (2 - Pfizer series)] Future Scheduled 2009 PNEUMOCOCCAL 65+ YRS [facility] 00:00:00 (1 - PCV) [code = Medical Ce nter PNEUMOCOCCAL 65+ YRS (1 - PCV)] Future Scheduled 1994 SHINGLES VACCINES ([address] [facility] 00:00:00 of 2) [code = SHINGLES Medic al Center VACCINES (1 of 2)] Future Scheduled 1963 DTAP/TDAP/TD VACCINES [facility] 00:00:00 (1 - Tdap) [code = Medical C enter DTAP/TDAP/TD VACCINES (1 - Tdap)] Future Scheduled 1962 HEPATITIS C SCREENING [facility] 00:00:00 [code = HEPATITIS C Medical Center SCREENING] Encounters Start End Encounter Admission Attending Care Care Encounter Source Date/Time Date/Time Type Type Clinicians Facility Department ID 2022-01-05 Outpatient Jeb, STLC STLC [id number] Common 09:42:01 Trevin [facility] 2021-12-06 Outpatient Jeb, STLC STLC [id number] Common 09:02:02 Trevin [id number] [facility] 2021-12-04 Outpatient Jeb, STLC STLC [id number] Common 14:18:03 Trevin [id number] [facility] 2021-12-22 2021-12-22 ambulatory STLC STLC [id number] Common 00:00:00 00:00:00 [facility] 2021-12-06 2021-12-06 ambulatory STLMLC STLC [id number] Common 00:00:00 00:00:00 [facility] 2021-12-04 2021-12-04 ambulatory STLMLC STLMLC [id number] Common 00:00:00 00:00:00 [facility] 2020-07-20 2020-07-20 Outpatient [facility] [id number] SLE 00:00:00 00:00:00 2020-06-29 2020-06-29 Outpatient [facility] [id number] [facility] 00:00:00 00:00:00 Results This patient has no known results.
[2022-01-07 09:08] LABS: Absolute Lymphocytes (CBC) 0.6 K/uL (0.7-4.9); MCV 99.4 fL (80-100); MPV 8.5 fL (7.6-11.3); RBC Red Blood Cell Count 3.22 M/uL (4.33-5.43)
[2022-01-07 09:12] LABS: Protime INR 2.35
--- NOTE | 2022-01-07 09:29 | RAD REPORT ---
EXAM DESCRIPTION: Matt Single View01/07/2022 8:34 am CLINICAL HISTORY: Shortness of breath COMPARISON: 2020 FINDINGS: Mild bilateral pulmonary opacities The heart is mildly to moderately enlarged enlarged. Pacemaker leads are in place. IMPRESSION: Mild CHF
[2022-01-07 09:31] LABS: SARS-CoV-2 Antigen Rapid Res Negative (Negative)
[2022-01-07] MEDS ORDERED: FUROSEMIDE 20 MG/ 2ML VIAL ONE (09:51)
[2022-01-07 10:20] LABS: Potassium 4.2 mmol/L (3.5-5.1); Troponin High Sensitivity 29.5 pg/mL (<58.9)
--- NOTE | 2022-01-07 11:17 | EDPHYS ---
Physician Documentation [facility] Name: Vamshi Felton Jr Age: 76 yrs Sex: Male : 1945 Arrival Date: 01/07/2022 Time: 08:04 Bed 14 Private MD: Trevin Russ V ED Physician Fredy Orourke HPI: 01/07 08:35 This 76 yrs old Male presents to ER via Wheelchair with complaints of Shortness Of snw Breath. 08:35 The patient has shortness of breath at rest. Onset: The symptoms/episode began/occurred snw acutely, 3 day(s) ago, and became persistent. Duration: The symptoms are continuous, and are unchanged since they started. Associated signs and symptoms: Pertinent positives: edema. Severity of symptoms: At their worst the symptoms were moderate. The patient has experienced similar episodes in the past. pt sees Dr. Russ, Dr. Stoner, and Dr. Ceci Oviedo. Historical: - Allergies: 08:13 Latex, Natural Rubber; iw 08:13 PENICILLINS; iw - Home Meds: 08:13 atorvastatin 40 mg Oral tab 1 tab once daily [Active]; citalopram 40 mg tab 1 tab once iw daily [Active]; clonazepam 0.5 mg Oral TbDi 1 tab AT NIGHT [Active]; Entresto 24-26 mg Oral tab 1 tab once daily [Active]; ferrous sulfate 325 mg (65 mg iron) Oral tab 1 tab once daily [Active]; fexofenadine 60 mg Oral cap 60 mg daily [Active]; furosemide 20 mg Oral tab 1 tab once daily [Active]; Metalozone 2.5 mg once daily [Active]; metoprolol tartrate 50 mg Oral tab 1 tab 2 times per day [Active]; pantoprazole 40 mg Oral grps 1 packet once daily [Active]; spironolactone 50 mg Oral tab 1 tab once daily [Active]; Vitamin C 500 mg Oral tab [Active]; - PMHx: 08:13 Hyperlipidemia; CHF; Myocardial infarction; iw - PSHx: 08:13 Pacemaker/Defibrillator; iw - Immunization history:: Adult Immunizations up to date, Client reports receiving the 2nd dose of the Covid vaccine. - Social history:: Smoking status: Patient denies any tobacco usage or history of. ROS: 08:35 Eyes: Negative for injury, pain, redness, and discharge, ENT: Negative for injury, snw pain, and discharge, Neck: Negative for injury, pain, and swelling. 08:35 Abdomen/GI: Negative for abdominal pain, nausea, vomiting, diarrhea, and constipation, Back: Negative for injury and pain, : Negative for injury, bleeding, discharge, and swelling, MS/Extremity: Negative for injury and deformity, Skin: Negative for injury, rash, and discoloration, Neuro: Negative for headache, weakness, numbness, tingling, and seizure. 08:35 Constitutional: Positive for malaise. 08:35 Cardiovascular: Positive for edema. 08:35 Respiratory: Positive for shortness of breath, at rest. Exam: 08:33 Constitutional: This is a well developed, well nourished patient who is awake, alert, snw and in no acute distress. Head/Face: Normocephalic, atraumatic. Eyes: Pupils equal round and reactive to light, extra-ocular motions intact. Lids and lashes normal. Conjunctiva and sclera are non-icteric and not injected. Cornea within normal limits. Periorbital areas with no swelling, redness, or edema. ENT: Nares patent. No nasal discharge, no septal abnormalities noted. Tympanic membranes are normal and external auditory canals are clear. Oropharynx with no redness, swelling, or masses, exudates, or evidence of obstruction, uvula midline. Mucous membranes moist. Neck: Trachea midline, no thyromegaly or masses palpated, and no cervical lymphadenopathy. Supple, full range of motion without nuchal rigidity, or vertebral point tenderness. No Meningismus. Chest/axilla: Normal chest wall appearance and motion. Nontender with no deformity. No lesions are appreciated. 08:33 Abdomen/GI: Soft, non-tender, with normal bowel sounds. No distension or tympany. No guarding or rebound. No evidence of tenderness throughout. Back: No spinal tenderness. No costovertebral tenderness. Full range of motion. Skin: Warm, dry with normal turgor. Normal color with no rashes, no lesions, and no evidence of cellulitis. MS/ Extremity: Pulses equal, no cyanosis. Neurovascular intact. Full, normal range of motion. Neuro: Awake and alert, GCS 15, oriented to person, place, time, and situation. Cranial nerves II-XII grossly intact. Motor strength 5/5 in all extremities. Sensory grossly intact. Cerebellar exam normal. Normal gait. 08:33 Cardiovascular: Rhythm: paced with some pvc's, Pulses: no pulse deficits are appreciated, Heart sounds: normal, Edema: 2+ edema to level of left ankle, left foot, right ankle and right foot. 08:33 Respiratory: moderate respiratory distress is noted, Respirations: labored breathing, shallow respirations, tachypnea, that is mild, Breath sounds: are clear throughout. Vital Signs: 08:12 BP 126 / 79; Pulse 65; Resp 19 S; Temp 96.5; Pulse Ox 100% on R/A; Weight 73.48 kg; iw Height 5 ft. 7 in. (170.18 cm); Pain 0/10; 09:50 BP 120 / 64; Pulse 65; Resp 16; Pulse Ox 99% ; bp 10:54 BP 121 / 79; Pulse 62; Resp 16; Pulse Ox 98% ; bp 08:12 Body Mass Index 25.37 (73.48 kg, 170.18 cm) iw MDM: 08:54 Patient medically screened. snw 11:12 Data reviewed: vital signs, nurses notes, lab test result(s), EKG, radiologic studies. snw Counseling: I had a detailed discussion with the patient and/or guardian regarding: the historical points, exam findings, and any diagnostic results supporting the discharge/admit diagnosis, lab results, radiology results, the need for outpatient follow up, to return to the emergency department if symptoms worsen or persist or if there are any questions or concerns that arise at home. Response to treatment: the patient's symptoms have markedly improved after treatment. Special discussion: Based on the history and exam findings, there is no indication for further emergent testing or inpatient evaluation. I discussed with the patient/guardian the need to see the primary care provider for further evaluation of the symptoms. ED course: Pt with 650ml urine output after IV lasix. Will start lasix bid at home x 3 days and f/u with Dr. Russ. Pt voices understanding of tx plan and f/u. 01/07 08:16 Order name: Basic Metabolic Panel; Complete Time: 10:21 iw 01/07 08:16 Order name: CBC with Diff; Complete Time: 09:35 iw 01/07 08:16 Order name: NT PRO-BNP; Complete Time: 10:21 iw 01/07 08:16 Order name: PT-INR; Complete Time: 09:35 iw 01/07 08:16 Order name: Troponin HS; Complete Time: 10:21 iw 01/07 08:28 Order name: SARS RAPID; Complete Time: 09:35 snw 01/07 08:16 Order name: XRAY Chest (1 view); Complete Time: 09:35 iw 01/07 08:16 Order name: EKG; Complete Time: 08:17 iw 01/07 08:16 Order name: Cardiac monitoring; Complete Time: 09:25 iw 01/07 08:16 Order name: EKG - Nurse/Tech; Complete Time: :25 iw 01/07 08:16 Order name: IV Saline Lock; Complete Time: 09:51 iw 01/07 08:16 Order name: Labs collected and sent; Complete Time: :25 iw 01/07 08:16 Order name: O2 Per Protocol; Complete Time: 09: iw 01/07 08:16 Order name: O2 Sat Monitoring; Complete Time: : iw 01/07 09:17 Order name: Labs - recollect needed: recollect green top/ hemolyzed; Complete Time: eb 09:51 EC:15 Rate is 65 beats/min. Rhythm is regular, Paced. snw Administered Medications: 09:51 Drug: LaSIX (furosemide) 40 mg {Note: GIVEN 20 MG IVP PER PROVIDER.} Route: PO; bp Disposition: 11:58 Co-signature as Attending Physician, Fredy Orourke MD I agree with the assessment and kdr plan of care. Disposition Summary: 01/07/22 11:16 Discharge Ordered Location: Home snw Condition: Stable snw Diagnosis - Acute on chronic systolic (congestive) heart failure snw Followup: snw - With: Trevin Russ MD - When: 2 - 3 days - Reason: Recheck today's complaints, Continuance of care, Re-evaluation by your physician Followup: snw - With: Emergency Department - When: As needed - Reason: Worsening of condition Discharge Instructions: - Discharge Summary Sheet snw - Heart Failure, Diagnosis snw - Form - Daily Weight Record snw Forms: - Medication Reconciliation Form snw - Thank You Letter snw - Antibiotic Education snw - Prescription Opioid Use snw Prescriptions: - furosemide 20 mg Oral tablet - take 1 tablet by ORAL route 2 times per day for 5 days; 10 tablet; Refills: 0, snw Product Selection Permitted Signatures: Dispatcher [employer] Fredy Montano MD MD kdr Waters, Shelly, ASSEMBLYMAN OR WOMAN-C ASSEMBLYMAN OR WOMAN-Csnw Obdulia Yost RN RN iw Peltier, Brian, RN RN bp Botello, Elizabeth eb
--- NOTE | 2022-01-07 11:17 | ER ---
Nurse's Notes [facility] Name: Vamshi Felton Jr Age: 76 yrs Sex: Male : 1945 Arrival Date: 01/07/2022 Time: 08:04 Bed 14 Private MD: Trevin Russ V Diagnosis: Acute on chronic systolic (congestive) heart failure Presentation: 01/07 08:12 Chief complaint: Patient states: increasing SOb over past week, has iw pacemaker/defibrillator that is due for a new lead, denies chest pain or palpitations , denies fever chills, reports mild cough. Coronavirus screen: Client presents with at least one sign or symptom that may indicate coronavirus-19. Ebola Screen: Patient negative for fever greater than or equal to 101.5 degrees Fahrenheit, and additional compatible Ebola Virus Disease symptoms Patient denies exposure to infectious person. Patient denies travel to an Ebola-affected area in the 21 days before illness onset. No symptoms or risks identified at this time. Initial Sepsis Screen: Does the patient meet any 2 criteria? No. Patient's initial sepsis screen is negative. Does the patient have a suspected source of infection? No. Patient's initial sepsis screen is negative. Risk Assessment: Do you want to hurt yourself or someone else? Patient reports no desire to harm self or others. Onset of symptoms was January 02, 2022. 08:12 Method Of Arrival: Wheelchair iw 08:12 Acuity: EARLENE 3 iw Triage Assessment: 08:15 General: Appears in no apparent distress. comfortable, Behavior is calm, cooperative, bp appropriate for age. Pain: Denies pain. EENT: No deficits noted. Neuro: No deficits noted. Cardiovascular: No deficits noted. Respiratory: Reports shortness of breath Onset: The symptoms/episode began/occurred at an unknown time. the patient has mild shortness of breath. GI: No signs and/or symptoms were reported involving the gastrointestinal system. : No signs and/or symptoms were reported regarding the genitourinary system. Derm: No deficits noted. Musculoskeletal: Swelling present in right ankle and left ankle. Historical: - Allergies: 08:13 Latex, Natural Rubber; iw 08:13 PENICILLINS; iw - Home Meds: 08:13 atorvastatin 40 mg Oral tab 1 tab once daily [Active]; citalopram 40 mg tab 1 tab once iw daily [Active]; clonazepam 0.5 mg Oral TbDi 1 tab AT NIGHT [Active]; Entresto 24-26 mg Oral tab 1 tab once daily [Active]; ferrous sulfate 325 mg (65 mg iron) Oral tab 1 tab once daily [Active]; fexofenadine 60 mg Oral cap 60 mg daily [Active]; furosemide 20 mg Oral tab 1 tab once daily [Active]; Metalozone 2.5 mg once daily [Active]; metoprolol tartrate 50 mg Oral tab 1 tab 2 times per day [Active]; pantoprazole 40 mg Oral grps 1 packet once daily [Active]; spironolactone 50 mg Oral tab 1 tab once daily [Active]; Vitamin C 500 mg Oral tab [Active]; - PMHx: 08:13 Hyperlipidemia; CHF; Myocardial infarction; iw - PSHx: 08:13 Pacemaker/Defibrillator; iw - Immunization history:: Adult Immunizations up to date, Client reports receiving the 2nd dose of the Covid vaccine. - Social history:: Smoking status: Patient denies any tobacco usage or history of. Screenin:49 Abuse screen: Denies threats or abuse. Denies injuries from another. Nutritional bp screening: No deficits noted. Tuberculosis screening: No symptoms or risk factors identified. Fall Risk None identified. Assessment: 08:15 General: SEE TRIAGE NOTE. bp 09:49 Reassessment: No changes from previously documented assessment. Patient and/or family bp updated on plan of care and expected duration. Pain level reassessed. Cardiovascular: Rhythm is Respiratory: Airway is patent Respiratory effort is even, unlabored, Breath sounds with crackles. 10:54 Reassessment: Patient appears in no apparent distress at this time. No changes from bp previously documented assessment. Patient and/or family updated on plan of care and expected duration. Pain level reassessed. Vital Signs: 08:12 BP 126 / 79; Pulse 65; Resp 19 S; Temp 96.5; Pulse Ox 100% on R/A; Weight 73.48 kg; iw Height 5 ft. 7 in. (170.18 cm); Pain 0/10; 09:50 BP 120 / 64; Pulse 65; Resp 16; Pulse Ox 99% ; bp 10:54 BP 121 / 79; Pulse 62; Resp 16; Pulse Ox 98% ; bp 08:12 Body Mass Index 25.37 (73.48 kg, 170.18 cm) ED Course: 08:04 Patient arrived in ED. as 08:04 Trevin Russ MD is Private Physician. as 08:10 Mehul Oseguera, RN is Primary Nurse. bp 08:13 Triage completed. iw 08:14 Arm band placed on. iw 08:15 Patient has correct armband on for positive identification. Bed in low position. Call bp light in reach. Side rails up X2. Client placed on continuous cardiac and pulse oximetry monitoring. NIBP monitoring applied. 08:25 Christa So FNP-C is PHCP. snw 08:25 Fredy Orourke MD is Attending Physician. snw 08:36 XRAY Chest (1 view) In Process Unspecified. EDMS 09:47 Inserted saline lock: 22 gauge in right wrist, using aseptic technique. Blood collected.bp 09:48 Lab(s) recollected, by me, sent to lab. em1 11:13 Trevin Russ MD is Referral Physician. snw 11:36 No provider procedures requiring assistance completed. IV discontinued, intact, bp bleeding controlled, No redness/swelling at site. Pressure dressing applied. Administered Medications: 09:51 Drug: LaSIX (furosemide) 40 mg {Note: GIVEN 20 MG IVP PER PROVIDER.} Route: PO; bp Medication: 09:49 VIS not applicable for this client. bp Outcome: 11:16 Discharge ordered by . snw 11:36 Discharged to home ambulatory. bp 11:36 Condition: stable 11:36 Discharge instructions given to patient, Instructed on discharge instructions, follow up and referral plans. medication usage, Demonstrated understanding of instructions, follow-up care, medications, Prescriptions given X 1. 11:37 Patient left the ED. bp Signatures: Dispatcher [employer] EDMS Christa So FNP-C SENIOR [employer] NETWORK ENGINEER-CsnRadha Bright as Obdulia Yost, RN RN iw Attila Elliott em1 Mehul Oseguera, RN RN bp
[2022-01-07 11:48] VITALS: TEMP 96.5
[2022-01-07 11:50] VITALS: BP 121/79; O2SAT 98
--- NOTE | 2022-01-08 11:33 | EKG ---
Test Date: 2022-01-07 Test Time: 08:12:00 Radarman: BP MEASUREMENT RESULTS: Intervals: Rate: 65 AR: 156 QRSD: 174 QT: 502 QTc: 522 [place]: P: 37 AR: 156 QRS: -31 T: 139 INTERPRETIVE STATEMENTS: Atrial-sensed ventricular-paced rhythm Abnormal ECG Compared to ECG 01/25/2021 10:45:25 No significant changes Electronically Signed On 01-08-22 11:32:02 CDT by Darrin Stoner
== END 2022-01-07 11:37 | disposition home or self-care (01) ==
LOC: ER 08:01
DX: R06.02 Shortness of breath (principal); I50.23 Acute on chronic systolic (congestive) heart failure; E78.5 Hyperlipidemia, unspecified; Z95.810 Presence of automatic (implantable) cardiac defibrillator; Z88.0 Allergy status to penicillin; Z91.040 Latex allergy status; Z91.048 Other nonmedicinal substance allergy status; Z20.822 Contact with and (suspected) exposure to COVID-19
CPT/HCPCS: 93005; 85025; 80048; 36415; 85610; 84484; 83880; 71045; 99284; 87811; J1940

== ENCOUNTER 2022-02-21 12:52 | Inpatient (IN) | payer OTHER ==
--- OUTSIDE RECORDS SUMMARY | 2022-02-21 13:02 | XMS REPORT | Continuity of Care Document ---
:1945 Author Organization [facility] t Address [address] [place] [address] Care Team Providers Name Role Phone Trevin [...] Department ID 2022-01-05 Outpatient Jeb, STLC STLC [id number] Common 09:42:01 Trevin [facility] 2021-12-06 Outpatient Jeb, STLC STLC [id number] Common 09:02:02 Trevin [id number] [facility] 2021-12-04 Outpatient Jeb, STLC STLC [id number] Common 14:18:03 Trevin [id number] [facility] 2022-01-19 2022-01-19 ambulatory STLMLC STLC [id number] Common 00:00:00 00:00:00 [facility] 2022-01-05 2022-01-05 ambulatory STLMLC STLMLC [id number] Common 00:00:00 00:00:00 [facility] 2021-12-22 2021-12-22 ambulatory STLMLC STLMLC [id number] Common 00:00:00 00:00:00 [facility] 2021-12-06 2021-12-06 ambulatory STLMLC STLC [id number] Common 00:00:00 00:00:00 [facility] 2021-12-04 2021-12-04 ambulatory STLMLC STLC [id number] Common 00:00:00 00:00:00 [facility] 2020-07-20 2020-07-20 Outpatient [facility] [id number] SLE 00:00:00 00:00:00 2020-06-29 2020-06-29 Outpatient [facility] [id number] [facility] 00:00:00 00:00:00 Results This patient has no known results.
--- NOTE | 2022-02-21 13:22 | RAD REPORT ---
EXAM DESCRIPTION: RAD - Chest Single View - 02/21/2022 1:11 pm CLINICAL HISTORY: SOB Chest pain. COMPARISON: Chest Single View dated 02/13/2022; Chest Single View dated 02/07/2022; Chest Single View dated 01/07/2022; Chest Single View dated 01/25/2021 FINDINGS: Portable technique limits examination quality. Moderate pulmonary edema is noted. The heart is moderately enlarged. No displaced fractures.Multi jan d pacer/ defibrillator device is noted. IMPRESSION: Moderate CHF or volume overload.
[2022-02-21] MEDS ORDERED: FUROSEMIDE 20 MG/ 2ML VIAL ONE (13:47)
[2022-02-21 13:51] LABS: Absolute Lymphocytes (CBC) 0.5 K/uL (0.7-4.9); Hematocrit 33.9 % (39.6-49.0); MPV 9.3 fL (7.6-11.3); RBC Red Blood Cell Count 3.43 M/uL (4.33-5.43)
[2022-02-21 13:52] LABS: Protime INR 2.45
[2022-02-21 14:01] LABS: Potassium 4.9 mmol/L (3.5-5.1)
[2022-02-21] MEDS ORDERED: METOPROLOL TARTRATE 5 MG/5 ML INJ IV ONE (14:55)
[2022-02-21 15:07] LABS: Troponin High Sensitivity 90.5 pg/mL (<58.9)
--- NOTE | 2022-02-21 16:28 | EDPHYS ---
Physician Documentation [facility] Name: Vamshi Felton Jr Age: 76 yrs Sex: Male : 1945 Arrival Date: 02/21/2022 Time: 12:57 Bed 7 Private MD: ED Physician Osmar Salinas HPI: 02/21 13:15 This 76 yrs old Male presents to ER via EMS with complaints of Shortness Of Breath. cp 13:15 The patient has shortness of breath at rest. cp 13:15 Onset: The symptoms/episode began/occurred today. Duration: The symptoms are cp continuous, and are steadily getting worse. Associated signs and symptoms: Pertinent negatives: chest pain, productive cough, diaphoresis, fever. 13:15 Patient presents to ED with c/o shortness of breath that started today while at [employer] office performing stress test. Patient denies chest pain. Historical: - Allergies: 13:00 Latex, Natural Rubber; bp 13:00 PENICILLINS; bp - Home Meds: 13:00 atorvastatin 40 mg Oral tab 1 tab once daily [Active]; citalopram 40 mg tab 1 tab once bp daily [Active]; clonazepam 0.5 mg Oral TbDi 1 tab AT NIGHT [Active]; Entresto 24-26 mg Oral tab 1 tab once daily [Active]; ferrous sulfate 325 mg (65 mg iron) Oral tab 1 tab once daily [Active]; fexofenadine 60 mg Oral cap 60 mg daily [Active]; furosemide 20 mg Oral tab 1 tab once daily [Active]; Metalozone 2.5 mg once daily [Active]; metoprolol tartrate 50 mg Oral tab 1 tab 2 times per day [Active]; pantoprazole 40 mg Oral grps 1 packet once daily [Active]; spironolactone 50 mg Oral tab 1 tab once daily [Active]; Vitamin C 500 mg Oral tab [Active]; - PMHx: 13:00 CHF; Hyperlipidemia; Myocardial infarction; bp - PSHx: 13:00 Pacemaker/Defibrillator; bp - Immunization history:: Adult Immunizations up to date. - Social history:: Smoking status: Patient denies any tobacco usage or history of. ROS: 13:20 Respiratory: Positive for shortness of breath, at rest. cp 13:20 Constitutional: Negative for body aches, chills, fever, poor PO intake. cp 13:20 Eyes: Negative for injury, pain, redness, and discharge. cp 13:20 Cardiovascular: Negative for chest pain, edema, palpitations. 13:20 Abdomen/GI: Negative for abdominal pain, nausea, vomiting, and diarrhea. 13:20 Back: Negative for pain at rest, pain with movement, radiated pain. 13:20 Neuro: Negative for altered mental status, headache, syncope, weakness. 13:20 All other systems are negative. Exam: 13:24 ECG was reviewed by the Attending Physician. cp 13:26 Constitutional: The patient appears alert, awake, non-diaphoretic, non-toxic, well cp developed, well nourished, in obvious distress, mildly distressed. 13:26 Head/Face: Normocephalic, atraumatic. cp 13:26 Eyes: Periorbital structures: appear normal, Pupils: equal, round, and reactive to light and accomodation, Extraocular movements: intact throughout, Conjunctiva: normal, no exudate, no injection, Sclera: no appreciated abnormality, Lids and lashes: appear normal, bilaterally. 13:26 ENT: External ear(s): are unremarkable, Nose: is normal, Mouth: Lips: moist, Oral mucosa: pink and intact, moist, Posterior pharynx: Airway: no evidence of obstruction, patent. 13:26 Chest/axilla: Inspection: normal, Palpation: is normal, no crepitus, no tenderness. 13:26 Cardiovascular: Rate: tachycardic, Rhythm: regular, Edema: ankle edema, that is very cp mild, JVD: is not appreciated. 13:26 Respiratory: mild respiratory distress is noted, Respirations: labored breathing, that cp is mild, Breath sounds: decreased breath sounds, are not appreciated, wheezing: is not appreciated. 13:26 Abdomen/GI: Inspection: abdomen appears normal, Palpation: abdomen is soft and non-tender, in all quadrants. 13:26 Back: pain, is absent, ROM is normal. 13:26 Skin: cellulitis, is not appreciated, no rash present. 13:26 Neuro: Orientation: to person, place \T\ time. Mentation: is normal, Motor: moves all fours, strength is normal, Sensation: is normal. Vital Signs: 12:57 BP 93 / 57; Pulse 90; Resp 24; Temp 97.5; Pulse Ox 88% ; bp 13:40 BP 107 / 91; Pulse 111; Resp 31; Pulse Ox 100% ; bp 14:40 BP 104 / 67; Pulse 124; Resp 32; Pulse Ox 94% ; bp 15:52 BP 108 / 89; Pulse 107; Resp 26; Pulse Ox 99% ; bp 19:09 BP 117 / 78; Pulse 95; Resp 32; Pulse Ox 89% on Non-rebreather mask; vc1 19:47 Weight 71.67 kg; vc1 20:10 BP 113 / 82; Pulse 89; Resp 37; Pulse Ox 92% ; vc1 21:47 BP 100 / 69; Pulse 115; Resp 38 S; Pulse Ox 96% on 5 lpm NC; as6 22:20 BP 89 / 74; Pulse 70; Resp 35 S; Pulse Ox 98% on 60% BiPAP; vc1 23:06 BP 101 / 76; Pulse 69; Resp 27 S; Temp 97.3(R); Pulse Ox 94% on 60% BiPAP; vc1 23:20 BP 88 / 30; Pulse 68; Resp 33 S; Pulse Ox 98% on 60% BiPAP; vc1 10/20 00:00 BP 72 / 26; Pulse 64; Resp 32 S; Pulse Ox 86% on 60% BiPAP; as6 00:12 BP 75 / 66; Pulse 69; Resp 33 S; as6 00:21 BP 63 / 35; Pulse 65; Resp 32 S; Pulse Ox 100% on 60% BiPAP; as6 00:30 BP 79 / 42; Pulse 65; Resp 34 S; as6 00:40 BP 64 / 44; Pulse 72; Resp 33 S; as6 00:59 BP 96 / 49; Pulse 62; Resp 30 S; Pulse Ox 100% on 60% BiPAP; as6 01:30 BP 81 / 63; Pulse 77; Resp 38; Pulse Ox 100% on 60% BiPAP; vc1 01:50 BP 105 / 90; Pulse 74; Resp 29; Pulse Ox 100% on 60% BiPAP; vc1 02:16 BP 96 / 60; Pulse 73; Resp 27 S; Pulse Ox 100% on 60% BiPAP; as6 02:40 BP 96 / 51; Pulse 74; Resp 28 S; Pulse Ox 100% on 60% BiPAP; as6 03:00 BP 93 / 56; Pulse 71; Resp 27 S; Pulse Ox 100% on 60% BiPAP; as6 03:20 BP 122 / 72; Pulse 72; Resp 26 S; Pulse Ox 100% on 60% BiPAP; as6 03:40 BP 117 / 58; Pulse 72; Resp 27; Pulse Ox 100% ; vc1 04:00 BP 99 / 52; Pulse 72; Resp 28; Pulse Ox 100% on 60% BiPAP; vc1 04:20 BP 105 / 56; Pulse 74; Resp 26; Pulse Ox 100% on 60% BiPAP; vc1 04:40 BP 117 / 81; Pulse 74; Resp 26; Pulse Ox 100% on 60% BiPAP; vc1 05:00 BP 103 / 59; Pulse 74; Resp 25; Pulse Ox 100% on 60% BiPAP; vc1 05:20 BP 123 / 99; Pulse 81; Resp 27 S; Pulse Ox 100% on 60% BiPAP; as6 05:40 BP 104 / 65; Pulse 76; Resp 23 S; Pulse Ox 100% on 60% BiPAP; as6 06:00 BP 92 / 59; Pulse 76; Resp 21 S; Pulse Ox 100% on 60% BiPAP; as6 07:00 BP 103 / 65; Pulse 80; Resp 25; Pulse Ox 100% on 60% CPAP; Pain 0/10; mb8 07:07 Temp 97.7(TE); as6 07:10 BP 106 / 62; Pulse 81; Resp 24; Pulse Ox 100% on 60% CPAP; mb8 07:20 BP 108 / 61; Pulse 80; Resp 24; Pulse Ox 100% on 60% CPAP; mb8 07:30 BP 100 / 86; Pulse 82; Resp 27; Pulse Ox 100% on 60% CPAP; mb8 07:40 BP 112 / 66; Pulse 83; Resp 25; Pulse Ox 100% on 60% CPAP; mb8 Procedures: 02:00 Central Line: the site was prepped with Betadine, in sterile fashion, a triple lumen cp catheter was inserted, in the right femoral vein, in 1 attempts. placement was verified, by blood return, the patient tolerated the procedure, well. MDM: 02/21 13:15 Patient medically screened. cp 13:42 Patient medically screened. himanshu 02/22 02:45 ED course: transfer center for [facility] declined transfer at this time. cp 06:18 ED course: Pt has been declined by [facility], [facility] and [facility] at [facility] this time. . 06:39 ED course: Discussed case with [facility] hospitalist who will discuss case with [facility] their vp director of finance prior to accepting the patient.. ED course: Pt appears to be showing signs of septic shock based upon AM labs. No source of infection has been identified at this time. Broad spectrum antibiotics ordered for coverage. Pt already on levophed. Cannot tolerate any further fluids with rising BNP and hx of CHF with significant risk for worsening fluid overload.. 06:45 ED course: Dr. Parker with [facility] has accepted the patient for transfer at this [facility] time. Pt is stable for transfer.. 07:31 Differential diagnosis: Anemia CHF exacerbation, Myocardial Infarction Pneumothorax himanshu pulmonary edema, reactive airway disease, Sepsis Unstable Angina. Antibiotic administration: cefepime/vanco. The patient's Wells Deep Vein Thrombosis Score was calculated as follows: Heart Rate >100 BPM (1.5 Pts) Total Score: 0-2 Pts- Low Risk. The patient's pulmonary embolism risk score was calculated as follows: the patients heart rate is greater than 100 beats per minute (1.5 Pts) Total Score: 0-2 points. This patient was found to be at low risk for a pulmonary embolism by using the Well's assessment criteria. Immunization status: Pneumococcal vaccine: Influenza vaccine: Data reviewed: vital signs, nurses notes, EMS record, lab test result(s), EKG, radiologic studies. Data interpreted: awake overnight monitor: rate is 80 beats/min, rhythm is regular, Pulse oximetry: on 50% oxygen by face mask, is 100 %. Test interpretation: by ED physician or midlevel provider: ECG, plain radiologic studies. Counseling: I had a detailed discussion with the patient and/or guardian regarding: the historical points, exam findings, and any diagnostic results supporting the discharge/admit diagnosis, lab results, radiology results, the need to transfer to another facility, for higher level of care, [facility] does not immediately have the required specialist. 02/21 13:02 Order name: Basic Metabolic Panel; Complete Time: 15:15 bp 02/21 15:15 Interpretation: Normal except: GLUC 158; BUN 43; CRE 1.81; GFR 38; CA 8.3. cp 02/21 13:02 Order name: CBC with Diff; Complete Time: 13:56 bp 02/21 13:56 Interpretation: Normal except: RBC 3.43; HGB 10.8; HCT 33.9; RDW 16.0; FRIDA% 83.9; LYM% cp 8.0; LYMA 0.5. 02/21 13:02 Order name: NT PRO-BNP; Complete Time: 15:15 bp 02/21 15:15 Interpretation: Abnormal: NT PRO-BNP 65301. cp 02/21 13:02 Order name: PT-INR; Complete Time: 13:56 bp 02/21 15:18 Interpretation: Abnormal: PT 27.0. cp 02/21 13:02 Order name: Troponin HS; Complete Time: 15:15 bp 02/21 15:16 Interpretation: Abnormal: Troponin HS 90.5. cp 02/21 13:32 Order name: Magnesium; Complete Time: 19:27 cp 02/21 17:08 Order name: CBC with Automated Diff EDMS 02/21 17:08 Order name: CBC with Automated Diff; Complete Time: 06:38 EDMS 02/21 17:08 Order name: CBC with Automated Diff EDMS 02/21 17:08 Order name: CBC with Automated Diff EDMS 02/21 17:08 Order name: Comprehensive Metabolic Panel EDMS 02/21 17:08 Order name: Comprehensive Metabolic Panel; Complete Time: 06:04 EDMS 02/21 17:08 Order name: Comprehensive Metabolic Panel EDMS 02/21 17:08 Order name: Comprehensive Metabolic Panel EDMS 02/21 17:08 Order name: Magnesium EDMS 02/21 17:08 Order name: Magnesium; Complete Time: 06:04 EDMS 02/21 17:08 Order name: Magnesium EDMS 02/21 17:08 Order name: Magnesium EDMS 02/21 17:08 Order name: NT PRO-BNP EDMS 02/21 17:08 Order name: NT PRO-BNP; Complete Time: 06:04 EDMS 02/21 17:08 Order name: NT PRO-BNP EDMS 02/21 17:08 Order name: NT PRO-BNP EDMS 02/21 17:12 Order name: SARS-COV-2 Antigen Rapid; Complete Time: 19:27 bd 02/21 19:20 Order name: ABG cp 02/21 19:20 Order name: CMP cp 02/21 19:20 Order name: CBC with Diff cp 02/21 19:47 Order name: CBC with Automated Diff; Complete Time: 20:08 EDMS 02/21 20:08 Interpretation: Normal except: RBC 3.83; HGB 11.9; HCT 37.4; RDW 16.1; FRIDA% 86.9; LYM% cp 6.1; LYMA 0.5. 02/21 20:04 Order name: Comprehensive Metabolic Panel; Complete Time: 20:08 EDMS 02/21 20:08 Interpretation: Normal except: K 5.4; ANION GAP 16.4; GLUC 132; BUN 49; CRE 1.92; GFR cp 35; ALT 382; BILIT 2.6; CA 9.0; GLOB 3.7; A/G 0.9; AST 338. 02/21 22:44 Order name: ABG Arterial Blood Gas; Complete Time: 01:39 EDMS 02/22 00:19 Order name: Troponin High Sensitivity; Complete Time: 01:39 EDMS 02/21 13:02 Order name: XRAY Chest (1 view); Complete Time: 13:36 bp 02/21 13:36 Interpretation: Report review. cp 02/21 13:02 Order name: EKG; Complete Time: 13:03 bp 02/21 19:22 Order name: BIPAP cp 02/22 00:40 Order name: Chest Single View XRAY kl 02/22 05:30 Order name: Blood Culture Adult (2) 02/22 05:30 Order name: Procalcitonin 02/22 05:30 Order name: Urine Microscopic Only 02/22 05:49 Order name: Troponin High Sensitivity; Complete Time: 05:52 EDMS 02/22 05:51 Order name: Lactate 02/22 05:51 Order name: US Abdomen Limited 02/22 05:52 Order name: Urine Dipstick-Ancillary; Complete Time: 06:04 EDMS 02/22 06:05 Order name: Urine Microscopic Only; Complete Time: 06:21 EDMS 02/22 06:15 Order name: Procalcitonin; Complete Time: 06:21 EDMS 02/22 06:27 Order name: Manual Differential; Complete Time: 06:38 EDMS 02/22 06:37 Order name: Lactate; Complete Time: 06:38 EDMS 02/22 07:32 Order name: US; Complete Time: 07:33 EDMS 02/21 13:02 Order name: Cardiac monitoring; Complete Time: 13:02 bp 02/21 13:02 Order name: EKG - Nurse/Tech; Complete Time: 13:40 bp 02/21 13:02 Order name: IV Saline Lock; Complete Time: 13:02 bp 02/21 13:02 Order name: Labs collected and sent; Complete Time: 13:40 bp 02/21 13:02 Order name: O2 Per Protocol; Complete Time: 13:02 bp 02/21 13:02 Order name: O2 Sat Monitoring; Complete Time: 13:02 bp 02/21 17:08 Order name: Low Sodium EDMS 02/21 19:20 Order name: Fox; Complete Time: 19:39 cp 02/21 19:20 Order name: EKG; Complete Time: 19:21 cp 02/21 19:20 Order name: EKG - Nurse/Tech; Complete Time: 19:32 cp 02/22 05:30 Order name: Urine Dipstick-Ancillary (obtain specimen); Complete Time: 05:52 sd2 EC/19 13:24 Rate is 117 beats/min. QRS interval is prolonged at 172 msec. QT interval is normal. T cp waves are Inverted in leads I, aVL. Interpreted by me. Reviewed by me. Administered Medications: 13:50 Drug: Lasix (furosemide) 20 mg Route: IVP; Site: right antecubital; bp 14:58 Follow up: Response: No adverse reaction bp 17:51 Follow up: Response: No adverse reaction bp 14:57 Drug: Metoprolol 2.5 mg Route: IVP; Site: right antecubital; bp 17:51 Follow up: Response: No adverse reaction bp 17:24 Not Given (Physician Discretion): Lasix (furosemide) 10 mg/hr IVP continuous cp 17:50 Drug: Lasix (furosemide) 5 mg/hr Route: IVP; Site: right antecubital; bp 19:03 Follow up: Response: No adverse reaction bp 18:50 Drug: amiodarone 150 mg Volume: 100 ml; Route: IVPB; Infused Over: 10 mins; Site: left bp antecubital; 19:00 Drug: amiodarone 900 mg, D5W 500 ml Route: IVPB; Rate: 1 mg/min; Site: left antecubital;bp 20:19 Drug: Xopenex (levalbuterol) (3) 1.25 mg Route: Inhalation; vc1 20:19 Drug: Atropine 0.5 mg Route: IVP; Site: right antecubital; vc1 20:19 Drug: Ativan (LORazepam) 0.5 mg Route: IVP; Site: right antecubital; vc1 02/22 01:20 Drug: Levophed (norepinephrine) 0.1 mcg/kg/min Route: IV; Rate: calculated rate; Site: as6 left antecubital; 06:57 Drug: Cefepime 2 grams Route: IVPB; Rate: 200 ml/hr; Infused Over: 30 mins; Site: right as6 femoral; 07:30 Follow up: IV Status: Completed infusion mb8 06:57 Drug: vancoMYCIN 15 mg/kg Route: IVPB; Site: right femoral; as6 07:07 Drug: Sodium Bicarbonate 50 mEq Route: IVP; Site: left antecubital; as6 07:12 Drug: Calcium Gluconate 1 grams Route: IVPB; Infused Over: 60 mins; Site: right mb8 antecubital; 07:45 Follow up: Response: No adverse reaction mb8 07:45 Follow up: IV Status: Completed infusion mb8 07:35 Drug: D5W 1000 ml, Sodium Bicarbonate 150 mEq Route: IV; Rate: 100 ml/hr; Site: right mb8 femoral; 07:37 Drug: Solu-CORTEF (hyrdoCORTISONE) 100 mg Route: IVP; Site: right antecubital; mb9 07:56 Follow up: Response: Medication administered at discharge. mb8 Disposition: 07:30 Co-signature as Attending Physician, Osmar Salinas MD I agree with the assessment and himanshu plan of care. 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-System cp himanshu 08:02 07:51 Doctor himanshu mb8
--- NOTE | 2022-02-21 16:28 | ER ---
Nurse's Notes [facility] Name: Vamshi Felton Jr Age: 76 yrs Sex: Male : 1945 Arrival Date: 02/21/2022 Time: 12:57 Bed 7 Private MD: Diagnosis: Unspecified combined systolic (congestive) and diastolic (congestive) heart failure;Cardiogenic shock;Acute kidney failure, unspecified;Elevated white blood cell count Presentation: 02/21 12:57 Chief complaint: EMS states: LOW O2 AND SOB DURING CARDIAC STRESS TEST FROM CARDIOLOGY bp CLINIC. Coronavirus screen: At this time, the client does not indicate any symptoms associated with coronavirus-19. Ebola Screen: No symptoms or risks identified at this time. Initial Sepsis Screen: Does the patient meet any 2 criteria? No. Patient's initial sepsis screen is negative. Does the patient have a suspected source of infection? No. Patient's initial sepsis screen is negative. Risk Assessment: Do you want to hurt yourself or someone else? Patient reports no desire to harm self or others. Onset of symptoms was February 21, 2022 at 12:00. Care prior to arrival: Medication(s) given: 4 MG METOPROLOL IVP IV initiated. 20 GA, in the right antecubital area, Oxygen administered. via a non-rebreather mask. 12:57 Method Of Arrival: EMS: [facility] bp 12:57 Acuity: EARLENE 2 bp Triage Assessment: 13:02 General: Appears distressed, uncomfortable, Behavior is calm, cooperative, appropriate bp for age. Pain: Denies pain. EENT: No deficits noted. Neuro: Level of Consciousness is awake, alert, obeys commands, Oriented to Appropriate for age. Cardiovascular: Rhythm is Respiratory: Reports shortness of breath Breath sounds are clear bilaterally. Onset: The symptoms/episode began/occurred just prior to arrival, the patient has severe shortness of breath. GI: No signs and/or symptoms were reported involving the gastrointestinal system. : No signs and/or symptoms were reported regarding the genitourinary system. Derm: No deficits noted. Musculoskeletal: No deficits noted. Historical: - Allergies: 13:00 Latex, Natural Rubber; bp 13:00 PENICILLINS; bp - Home Meds: 13:00 atorvastatin 40 mg Oral tab 1 tab once daily [Active]; citalopram 40 mg tab 1 tab once bp daily [Active]; clonazepam 0.5 mg Oral TbDi 1 tab AT NIGHT [Active]; Entresto 24-26 mg Oral tab 1 tab once daily [Active]; ferrous sulfate 325 mg (65 mg iron) Oral tab 1 tab once daily [Active]; fexofenadine 60 mg Oral cap 60 mg daily [Active]; furosemide 20 mg Oral tab 1 tab once daily [Active]; Metalozone 2.5 mg once daily [Active]; metoprolol tartrate 50 mg Oral tab 1 tab 2 times per day [Active]; pantoprazole 40 mg Oral grps 1 packet once daily [Active]; spironolactone 50 mg Oral tab 1 tab once daily [Active]; Vitamin C 500 mg Oral tab [Active]; - PMHx: 13:00 CHF; Hyperlipidemia; Myocardial infarction; bp - PSHx: 13:00 Pacemaker/Defibrillator; bp - Immunization history:: Adult Immunizations up to date. - Social history:: Smoking status: Patient denies any tobacco usage or history of. Screenin:03 Abuse screen: Denies threats or abuse. Denies injuries from another. Nutritional bp screening: No deficits noted. Tuberculosis screening: No symptoms or risk factors identified. Fall Risk None identified. Assessment: 13:03 General: SEE TRIAGE NOTE. bp 14:00 Reassessment: No changes from previously documented assessment. Patient and/or family bp updated on plan of care and expected duration. Pain level reassessed. 15:53 Reassessment: Patient and/or family updated on plan of care and expected duration. Pain bp level reassessed. Patient states symptoms have improved. Cardiovascular: Rhythm is 19:30 Reassessment: Pt complains of increased shortness of breath, RT paged. Oxygen vc1 saturation 90%, respirations 44. 19:51 Reassessment: ABG done by RT, no need for bipap at this time. Pt given neb treatment. vc1 20:23 Respiratory: Airway is patent Respiratory effort is even, labored, shallow, Respiratory vc1 pattern is hyperventilation. 20:40 Reassessment: Pt states he feels like he is breathing better. vc1 23:20 Reassessment: Notified ER provider that patients blood pressure is decreasing and vc1 patients respirations are now labored. RT paged pt placed on BiPAP IPAP 14 EPAP 7 rate 16 FiO2 60%, tital volume 560. Pt oxygen saturation now 96%. Provider states to continue Amiodarone drip and Lasix drip. 23:20 Respiratory: Patient placed on BiPAP: Inspiratory Pressure: 14 Expiratory (EPAP) vc1 Pressure: 7 FiO2%: 60 Respiratory Rate: 16. 02/22 00:26 Cardiovascular: Capillary refill is > 3 seconds is sluggish in bilateral fingers toes as6 JVD is present bilaterally. 00:26 Reassessment: ER provider notified of change in condition. Amiodarone and Lasix dripped vc1 stopped. Started patient on Levophed. Pt states he feels like his breathing has improved. 00:26 General: Behavior is calm, cooperative. Cardiovascular: Capillary refill is > 3 seconds vc1 is sluggish in bilateral fingers toes JVD is present bilaterally Rhythm is Chest pain is denied. Respiratory: Airway is patent Respiratory effort is even, Respiratory pattern is tachypnea 01:30 Reassessment: Patient and/or family updated on plan of care and expected duration. Pain vc1 level reassessed. Patient states symptoms have not improved. 03:00 Reassessment: Patient and/or family updated on plan of care and expected duration. Pain vc1 level reassessed. Patient states symptoms have improved. 04:00 Reassessment: Patient and/or family updated on plan of care and expected duration. Pain vc1 level reassessed. Patient states feeling better. Patient states symptoms have improved. 05:00 Reassessment: No changes from previously documented assessment. Patient and/or family vc1 updated on plan of care and expected duration. Pain level reassessed. 07:15 Cardiovascular: Rhythm is ventricular pacer. Respiratory: Airway is patent Respiratory mb8 effort is even, unlabored, Respiratory pattern is regular, symmetrical, tachypnea Patient placed on BiPAP: FiO2%: 60 Breath sounds are clear bilaterally. Vital Signs: 02/21 12:57 BP 93 / 57; Pulse 90; Resp 24; Temp 97.5; Pulse Ox 88% ; bp 13:40 BP 107 / 91; Pulse 111; Resp 31; Pulse Ox 100% ; bp 14:40 BP 104 / 67; Pulse 124; Resp 32; Pulse Ox 94% ; bp 15:52 BP 108 / 89; Pulse 107; Resp 26; Pulse Ox 99% ; bp 19:09 BP 117 / 78; Pulse 95; Resp 32; Pulse Ox 89% on Non-rebreather mask; vc1 19:47 Weight 71.67 kg; vc1 20:10 BP 113 / 82; Pulse 89; Resp 37; Pulse Ox 92% ; vc1 21:47 BP 100 / 69; Pulse 115; Resp 38 S; Pulse Ox 96% on 5 lpm NC; as6 22:20 BP 89 / 74; Pulse 70; Resp 35 S; Pulse Ox 98% on 60% BiPAP; vc1 23:06 BP 101 / 76; Pulse 69; Resp 27 S; Temp 97.3(R); Pulse Ox 94% on 60% BiPAP; vc1 23:20 BP 88 / 30; Pulse 68; Resp 33 S; Pulse Ox 98% on 60% BiPAP; vc1 1020 00:00 BP 72 / 26; Pulse 64; Resp 32 S; Pulse Ox 86% on 60% BiPAP; as6 00:12 BP 75 / 66; Pulse 69; Resp 33 S; as6 00:21 BP 63 / 35; Pulse 65; Resp 32 S; Pulse Ox 100% on 60% BiPAP; as6 00:30 BP 79 / 42; Pulse 65; Resp 34 S; as6 00:40 BP 64 / 44; Pulse 72; Resp 33 S; as6 00:59 BP 96 / 49; Pulse 62; Resp 30 S; Pulse Ox 100% on 60% BiPAP; as6 01:30 BP 81 / 63; Pulse 77; Resp 38; Pulse Ox 100% on 60% BiPAP; vc1 01:50 BP 105 / 90; Pulse 74; Resp 29; Pulse Ox 100% on 60% BiPAP; vc1 02:16 BP 96 / 60; Pulse 73; Resp 27 S; Pulse Ox 100% on 60% BiPAP; as6 02:40 BP 96 / 51; Pulse 74; Resp 28 S; Pulse Ox 100% on 60% BiPAP; as6 03:00 BP 93 / 56; Pulse 71; Resp 27 S; Pulse Ox 100% on 60% BiPAP; as6 03:20 BP 122 / 72; Pulse 72; Resp 26 S; Pulse Ox 100% on 60% BiPAP; as6 03:40 BP 117 / 58; Pulse 72; Resp 27; Pulse Ox 100% ; vc1 04:00 BP 99 / 52; Pulse 72; Resp 28; Pulse Ox 100% on 60% BiPAP; vc1 04:20 BP 105 / 56; Pulse 74; Resp 26; Pulse Ox 100% on 60% BiPAP; vc1 04:40 BP 117 / 81; Pulse 74; Resp 26; Pulse Ox 100% on 60% BiPAP; vc1 05:00 BP 103 / 59; Pulse 74; Resp 25; Pulse Ox 100% on 60% BiPAP; vc1 05:20 BP 123 / 99; Pulse 81; Resp 27 S; Pulse Ox 100% on 60% BiPAP; as6 05:40 BP 104 / 65; Pulse 76; Resp 23 S; Pulse Ox 100% on 60% BiPAP; as6 06:00 BP 92 / 59; Pulse 76; Resp 21 S; Pulse Ox 100% on 60% BiPAP; as6 07:00 BP 103 / 65; Pulse 80; Resp 25; Pulse Ox 100% on 60% CPAP; Pain 0/10; mb8 07:07 Temp 97.7(TE); as6 07:10 BP 106 / 62; Pulse 81; Resp 24; Pulse Ox 100% on 60% CPAP; mb8 07:20 BP 108 / 61; Pulse 80; Resp 24; Pulse Ox 100% on 60% CPAP; mb8 07:30 BP 100 / 86; Pulse 82; Resp 27; Pulse Ox 100% on 60% CPAP; mb8 07:40 BP 112 / 66; Pulse 83; Resp 25; Pulse Ox 100% on 60% CPAP; mb8 ED Course: 02/21 12:57 Patient arrived in ED. bp 12:59 Triage completed. bp 13:02 Arm band placed on. bp 13:03 Patient has correct armband on for positive identification. Bed in low position. Call bp light in reach. Side rails up X2. 13:03 Maintain EMS IV. Dressing intact. Good blood return noted. Site clean \\T\\ dry. Gauge \\T\\ bp site: 20 G R AC. 13:13 XRAY Chest (1 view) In Process Unspecified. EDMS 13:14 Osmar Carrasco PA is PHCP. cp 13:14 Osmar Salinas MD is Attending Physician. cp 13:40 Mehul Oseguera, MICAH is Primary Nurse. bp 16:26 Trevin Russ MD is Hospitalizing Provider. cp 19:05 Primary Nurse role handed off by Mehul Oseguera, RN mw2 19:32 EKG done, by ED staff, reviewed by Osmar HERNANDEZ. wm 19:38 Nehemiah Thomas, MICAH is Primary Nurse. as6 19:38 CMP Sent. as6 19:38 CBC with Diff Sent. as6 19:39 Fox cath inserted, using sterile technique, 18 Fr., by dc, balloon inflated, to as6 gravity drainage, urine specimen collected. returned Patient tolerated well. 02/22 00:40 Dressage Judge attempted to contact the Cardiology answering was put on hold no answer. mw2 00:[address] Hickman's personal number. mw2 01:40 Assisted provider with central line placement. Set up central line tray. Triple lumen as6 line placed in right femoral. Line placed by Osmar HERNANDEZ Placement verified by blood return, Dressed with Tegaderm, Patient tolerated well. 01:42 intiated a transfer with Olga from [facility]. mw2 02:00 [facility] denied due to internal disaster. mw2 02:40 [facility] denied patient they are not accepting ICU patients. mw2 02:44 initiated a transfer with Deidra from [facility]. mw2 03:[address] Floyd with the Cobol Programmer from [facility]. mw2 03:37 [facility] denied due to the patient having Cardiogenic Shock Deidra stated "if he mw2 needed interventions that avella won't be able to care for the patient. And [facility] is on ICU saturation.". 04:11 Initiated a transfer with Adan from [facility] Transfer [place]. mw2 05:27 intiaited a transfer with [facility]. mw2 05:52 intiated a transfer with Alberto from [facility] Transfer [place]. mw2 05:59 still on hold with [facility] for 32 minutes. mw2 06:05 Shawn denied due to [place]. mw2 06:[address] Floyd with the Hospitalist from [facility]. mw2 06:18 finally was able to talk to Rose from [facility] to initiate [facility] the transfer. 06:43 administrative approval given by Anat Suarez/ patient has been accepted to [facility] [address] [place], [place] [id number]/ Dr. Parker accepted the patient in transfer/ report to be called to [phone]. 07:58 Patient transferred, IV remains in place. mb8 Administered Medications: 02/21 13:50 Drug: Lasix (furosemide) 20 mg Route: IVP; Site: right antecubital; bp 14:58 Follow up: Response: No adverse reaction bp 17:51 Follow up: Response: No adverse reaction bp 14:57 Drug: Metoprolol 2.5 mg Route: IVP; Site: right antecubital; bp 17:51 Follow up: Response: No adverse reaction bp 17:24 Not Given (Physician Discretion): Lasix (furosemide) 10 mg/hr IVP continuous cp 17:50 Drug: Lasix (furosemide) 5 mg/hr Route: IVP; Site: right antecubital; bp 19:03 Follow up: Response: No adverse reaction bp 18:50 Drug: amiodarone 150 mg Volume: 100 ml; Route: IVPB; Infused Over: 10 mins; Site: left bp antecubital; 19:00 Drug: amiodarone 900 mg, D5W 500 ml Route: IVPB; Rate: 1 mg/min; Site: left antecubital;bp 20:19 Drug: Xopenex (levalbuterol) (3) 1.25 mg Route: Inhalation; vc1 20:19 Drug: Atropine 0.5 mg Route: IVP; Site: right antecubital; vc1 20:19 Drug: Ativan (LORazepam) 0.5 mg Route: IVP; Site: right antecubital; vc1 02/22 01:20 Drug: Levophed (norepinephrine) 0.1 mcg/kg/min Route: IV; Rate: calculated rate; Site: as6 left antecubital; 06:57 Drug: Cefepime 2 grams Route: IVPB; Rate: 200 ml/hr; Infused Over: 30 mins; Site: right as6 femoral; 07:30 Follow up: IV Status: Completed infusion mb8 06:57 Drug: vancoMYCIN 15 mg/kg Route: IVPB; Site: right femoral; as6 07:07 Drug: Sodium Bicarbonate 50 mEq Route: IVP; Site: left antecubital; as6 07:12 Drug: Calcium Gluconate 1 grams Route: IVPB; Infused Over: 60 mins; Site: right mb8 antecubital; 07:45 Follow up: Response: No adverse reaction mb8 07:45 Follow up: IV Status: Completed infusion mb8 07:35 Drug: D5W 1000 ml, Sodium Bicarbonate 150 mEq Route: IV; Rate: 100 ml/hr; Site: right mb8 femoral; 07:37 Drug: Solu-CORTEF (hyrdoCORTISONE) 100 mg Route: IVP; Site: right antecubital; mb9 07:56 Follow up: Response: Medication administered at discharge. mb8 Medication: 02/21 13:03 VIS not applicable for this client. bp Output: 02/22 06:17 Urine: 70ml (Fox); Total: 70ml. as6 Outcome: 02/21 16:28 Decision to Hospitalize by Provider. cp 02/22 01:43 ER care complete, transfer ordered by MD. cp 07:57 Transferred by helicopter Note: transferred to [facility], previous RN michelle already gave nurse to nurse report 07:57 critical 08:02 Patient left the ED. mbStu Signatures: Dispatcher [employer] EDMS Osmar Carrasco PA PA cp Mehul Oseguera, RN RN bp Jesus Hardy mw2 Izzy Cedillo wm Nehemiah Thomas RN RN as6 Kathrine Abreu RN RN vc1 James Armstrong, RN RN mb8 Yeni Sahni, RN RN mb9 Corrections: (The following items were deleted from the chart) 01:37 02/21 20:00 Reassessment: Pt complains of increased shortness of breath, RT paged and vc1 ABGs completed. Pt will benefit from Neb treatment no Bipap needed at this time. vc1 02/22 01:41 02/21 23:00 BP 73 / 31; Pulse 67bpm; Resp 35bpm; Spontaneous; Pulse Ox 94% 02 60% vc1 BiPAP; as6 02/22 01:41 02/21 22:30 BP 76 / 66; Pulse 69bpm; Resp 35bpm; Spontaneous; Pulse Ox 98% 02 60% vc1 BiPAP; as6 02/22 01:41 02/21 23:30 BP 88 / 30; Pulse 68bpm; Resp 33bpm; Spontaneous; Pulse Ox 98% 02 60% vc1 BiPAP; as6 02/22 01:41 10/19 23:00 Temp 97.3F Rectal; as6 vc1
[2022-02-21] MEDS ORDERED: ONDANSETRON 4 MG/2 ML VIAL IV PRN (16:59)
[2022-02-21] MEDS ORDERED: FUROSEMIDE 100 MG in NA CHLORIDE 0.9% 90 ML IV SCH (18:00)
--- NOTE | 2022-02-21 18:16 | CON ---
Date of Consultation: 02/21/2022 History Of Present Illness: This is a 76-year-old male, patient of Dr. Russ, who presented to the e mergency room with shortness of breath and orthopnea along with lower extremity edema. The patient i s known to have past medical history of coronary artery disease, congestive heart failure. He has an ICD in place. He has history of atrial fibrillation and he has also apparently Bi-V pacemaker and h as prostate cancer. Denies having any chest pain at the present time. No nausea, vomiting, diarrhea , or diaphoresis, but he has orthopnea. Past Medical History: As outlined above in the HPI. Medications: Refer to reconciliation sheet for detailed list. Allergies: HE IS ALLERGIC TO PENICILLIN AND LATEX. Family History: No premature coronary artery disease or cancer. Social History: Does not smoke or drink. Does not use any drugs. Review of Systems: All systems reviewed and they were negative except for what mentioned in HPI. Physical Examination: Vital Signs: Reviewed. Head and Neck: Pupils are equal, reactive to light. Intact eye movements. He has elevated JVD. No cervical lymphadenopathy. Neck is supple. Thyroid is not enlarged. Lungs: He has a faint crackles on both bases. No accessory muscle use or muscle retraction. Heart: Irregular. No extra sounds. Abdomen: Soft, nontender. Bowel sounds positive. No organomegaly. No masses or hernia. No rigidi ty or rebound. Extremities: No clubbing or cyanosis, but there is 2+ pedal edema. Neurologic: Alert, awake, oriented x3. No acute focal deficits appreciated. Investigations: His BUN is 43, creatinine 1.8, and troponin is 90. NT-proBNP is 11,689. Hemoglobin is 10.8. His chest x-ray showed a moderate CHF. Assessment And Recommendations: 1.Acute on chronic systolic congestive heart failure exacerbation. Agree with admission. Started o n IV Lasix drip at 10 mg/hour. Carefully monitor BUN, creatinine, and electrolytes and blood pressur e. Monitor in and output, also strict low-sodium diet less than 2 g and strict fluid restriction. 2.Elevated troponin, mild elevation, likely demand ischemia. Please trend 2 more sets and we will f urther evaluate accordingly. Thank you for the consult. /ALEXANDRA Voice ID: [id number] Report ID: [id number]
[2022-02-21 18:43] LABS: SARS-CoV-2 Antigen Rapid Res Negative (Negative)
[2022-02-21] MEDS ORDERED: AMIODARONE HCL 150 MG/3 ML INJ IV ONE (18:43)
[2022-02-21] MEDS ORDERED: AMIODARONE IN DEXTROSE,ISO-OSM 360 MG/200 ML BAG IV ONE (18:44)
[2022-02-21] MEDS ORDERED: RSI MEDICATION KIT IV ONE (19:13)
[2022-02-21 19:46] LABS: Absolute Lymphocytes (CBC) 0.5 K/uL (0.7-4.9); Hematocrit 37.4 % (39.6-49.0); Lymphocytes % 6.1 % (15.3-44.8); MCV 97.5 fL (80-100); MPV 9.1 fL (7.6-11.3); RBC Red Blood Cell Count 3.83 M/uL (4.33-5.43)
[2022-02-21 19:59] LABS: Albumin 3.5 g/dL (3.4-5.0); Bilirubin Total 2.6 mg/dL (0.2-1.0); Potassium 5.4 mmol/L (3.5-5.1); Protein, Total 7.2 g/dL (6.4-8.2)
[2022-02-21] MEDS ORDERED: ATROPINE SULF 1 MG/10 ML SYR IV ONE (20:05)
[2022-02-21] MEDS ORDERED: IPRATROPIUM BROM 0.5MG/2.5ML ONE (20:05)
[2022-02-21] MEDS ORDERED: LEVALBUTEROL 0.63 MG/3 ML NEB ONE (20:05)
[2022-02-21] MEDS ORDERED: LORazepam 2 MG/ML VIAL ONE (20:10)
[2022-02-21 22:41] LABS: Arterial Blood Carboxyhemoglob 0.8 % (0-1.5); Blood Gas Oxyhemoglobin 97.5 % (94-97); Blood O2 Saturation 99.4 % (92-98.5)
[2022-02-22] MEDS ORDERED: NOREPINEPHRINE BITARTRATE/D5W 4 MG/250 ML BAG IV ONE ×2 (00:50→07:35)
[2022-02-22 05:13] LABS: Absolute Lymphocytes (CBC) 0.2 K/uL (0.7-4.9); Hematocrit 38.4 % (39.6-49.0); Lymphocytes % 0.9 % (15.3-44.8); MCV 102.6 fL (80-100); MPV 9.7 fL (7.6-11.3); RBC Red Blood Cell Count 3.74 M/uL (4.33-5.43)
[2022-02-22 05:48] LABS: Albumin 3.2 g/dL (3.4-5.0); Bilirubin Total 3.8 mg/dL (0.2-1.0); Magnesium 2.4 mg/dL (1.8-2.4); Protein, Total 6.3 g/dL (6.4-8.2)
[2022-02-22 05:51] LABS: Potassium 5.9 mmol/L (3.5-5.1)
[2022-02-22 05:51] LABS: Urine Blood Trace-lysed (Negative); Urine Glucose Negative (Negative); Urine Protein Trace (Negative); Urine Specific Gravity >=1.030 (1.005-1.030)
[2022-02-22 06:05] LABS: Urine Bacteria <20 /HPF (<20); Urine Mucus Slight /HPF (None Seen)
[2022-02-22 06:26] LABS: Blood Morphology Comment NOT SEEN (NOT SEEN); Platelet Estimate ADEQ
[2022-02-22] MEDS ORDERED: VANCOMYCIN 1 GM/VIAL ONE (06:44)
[2022-02-22] MEDS ORDERED: CEFEPIME 2 GM VIAL ONE (06:44)
[2022-02-22] MEDS ORDERED: NA CHLORIDE 0.9% 250 ML ONE (06:45)
[2022-02-22] MEDS ORDERED: NA CHLORIDE 0.9% 100 ML IV ONE (06:45)
[2022-02-22] MEDS ORDERED: CALCIUM GLUCONATE 1 GM IVPB 1 GM/50 ML BAG IV ONE (06:59)
[2022-02-22] MEDS ORDERED: SODIUM BICARB 50 MEQ/50ML VIAL ONE ×2 (06:59→07:25)
[2022-02-22] MEDS ORDERED: D5W 1,000 ML IV ONE (07:25)
--- NOTE | 2022-02-22 07:30 | RAD REPORT ---
EXAM DESCRIPTION: US - Abdomen Exam Limited - 02/22/2022 7:00 am CLINICAL HISTORY: elevated LFTs COMPARISON: Abdomen Exam Complete dated 03/18/2020Abdomen Exam Complete dated 03/18/2020 FINDINGS: No gallstones, sludge or other focal abnormality within the lumen of the gallbladder. The gallbladder size is normal. However, there is gallbladder wall thickening and edema evident. Trace am ount of pericholecystic fluid seen. No common duct stone or biliary tree dilatation identified. IMPRESSION: Wall thickening and edema in a normal size gallbladder. No stones or sludge within the l umen. No biliary tree abnormality. Correlation can be made with any clinical findings suggesting an acalculous cholecystitis. Wall thic kening and edema can occur the patient has systemic fluid retention process.
[2022-02-22] MEDS ORDERED: HYDROCORTISONE SUC 100 MG INJ ONE (07:34)
[2022-02-22 08:46] VITALS: TEMP 97.7
[2022-02-22 08:51] VITALS: BP 112/66
[2022-02-22 09:34] VITALS: O2SAT 96
--- NOTE | 2022-02-22 12:06 | RAD REPORT ---
EXAM DESCRIPTION: RAD - Chest Single View - 02/22/2022 1:00 am CLINICAL HISTORY: Dyspnea TECHNIQUE: Frontal view of the chest. COMPARISON: No relevant prior studies available. FINDINGS: Lungs: Mild central pulmonary vascular and interstitial prominence and patchy bilateral perihilar opacities. Pleural space: Unremarkable. No pneumothorax. Heart: The heart is moderately enlarged. Mediastinum: Unremarkable. Bones/joints: Unremarkable. Vasculature: Thoracic aortic atherosclerosis. Tubes, lines and devices: Left chest wall triple lead pacer. IMPRESSION: Findings which may reflect mild pulmonary congestion. Superimposed infection not exclu ded. Electronically signed by: Araceli Hull MD 02/22/2022 1:34 AM CDT Due to temporary technical issues with the PACS/Fluency reporting system, reports are being signed by the in house radiologists without review as a courtesy to insure prompt reporting. The interpreting radiologist is fully responsible for the content of the report.
--- NOTE | 2022-02-22 12:45 | P.SSS ---
Patient History Date of Service: 02/22/22 Reason for admission: TACHYCARDIA DURING STRESS TEST. History of Present Illness: MR. MUNOZ HAS SEVERE CONGESTIVE CARDIOMYOPATHY. HE HAS BEEN TO ER TWICE FOR SHORTNESS OF BREATH BUT LOOKED VERY COMFORTABLE AT REST AND HAD FOLLOWED UP WITH [employer] PROFESSOR. DURING STRESS TEST HE BECAME VERY DYSPNEIC AND WAS BROUGHT TO ER. HE HAD LOW NORMAL BP AT ABOUT 90 SYSTOLIC AND MODERATE CHF ON X RAY WITH RAPID A FIB. BEING A VERY ILL PATIENT I ASKED ER TO CALL DR. LANCASTER SO WE CAN GET HIM ON AMIODARONE FOR A FIB CONTROL . I PUT HIM ON LOW DOSE LASIX DRIP 5 MG PER HOUR BP WAS LOW AT 90 TO 100 SYSTOLIC. HE IS IN A VERY POOR SHAPE AND HIS WBC RISED TO 20K WITH LIVER SHOWING SIGNS OF HYPOVOLEMIC AND OR CARDIAC SHOCK. HE WAS SENT TO [facility]. DR. LANCASTER MADE ARRANGEMENT. Allergies Latex, Natural Rubber Allergy (Verified 12/06/21 10:52) Shortness of breath Penicillins Allergy (Verified 12/06/21 10:52) DIARRHEA Sulfa (Sulfonamide Antibiotics) Allergy (Verified 12/06/21 10:52) Blood in Urine antihistamines Adverse Reaction (Uncoded 12/06/21 10:52) PALPITATIONS Home Medications: Atorvastatin Calcium [Lipitor] 40 mg PO DAILY 07/30/14 Clonazepam 0.5 mg PO BEDTIME 07/30/14 Metoprolol Tartrate 50 mg PO BID 07/30/14 Rivaroxaban [Xarelto*] 20 mg PO BEDTIME 03/23/20 Citalopram [Celexa*] 40 mg PO DAILY 03/24/20 Furosemide [Lasix*] 20 mg PO DAILY 12/06/21 Lansoprazole [Prevacid 24Hr] 15 mg PO DAILY 12/06/21 Spironolactone [Aldactone*] 25 mg PO BEDTIME 12/06/21 Mv-Mins/Folic/Lycopene/Ginkgo [One Daily Men's 50+ Tablet] 1 tab PO DAILY 02/07/22 - Past Medical/Surgical History Diabetic: No -: Prostate CA -: Haert attack 2008 -: Heart Stent 2008 -: Duodenal ulcer -: Afib -: CHF -: General Panic attack -: Pacemaker/Defib 2008 -: Parathyroid removal 2012 - Family History Mother -: Heart disease Notes: AFIB, CHF Father -: Diabetes - Social History Alcohol use: No CD- Drugs: No Caffeine use: Yes Review of Systems 10-point ROS is otherwise unremarkable General: Weakness, Malaise Respiratory: Shortness of Breath Cardiovascular: Paroxysmal Noc. Dyspnea, As per HPI Physical Examination - Vital Signs Temperature: 97.7 F Blood Pressure: 112/66 Pulse: 83 Respirations: 25 - Physical Exam General: Oriented x3, Acute distress, Mild distress HEENT: Atraumatic, PERRLA, Mucous membr. moist/pink, EOMI, Sclerae nonicteric Neck: Supple, 2+ carotid pulse no bruit, No LAD, Without JVD or thyroid abnormality Respiratory: Diminished (BREATH RATE IS HIGH AT ABOUT 20.) Cardiovascular: Irregular heart rate/rhythm (A FIB ON MONITOR.) Gastrointestinal: Normal bowel sounds, No tenderness Musculoskeletal: No tenderness Integumentary: No rashes Neurological: Normal gait, Normal speech, Normal strength at 5/5 x4 extr, Normal tone, Normal affect Lymphatics: No axilla or inguinal lymphadenopathy - Studies Laboratory Data (last 24 hrs) 02/21/22 13:12: Magnesium 2.0 02/21/22 13:12: PT 27.0 H, INR 2.45 02/21/22 13:12: WBC 6.80, Hgb 10.8 L, Hct 33.9 L, Plt Count 236 02/21/22 13:12: Sodium 137, Potassium 4.9, BUN 43 H, Creatinine 1.81 H, Glucose 158 H - Diagnosis (Problem(s)) (1) Rapid atrial fibrillation Current Visit: No Status: Chronic Plan: AMIODARONE DRIP SENT TO [facility]. (2) Systolic CHF, acute on chronic Current Visit: No Status: Chronic Plan: PROGNOSIS IS POOR HIS BP IS LOW AND NOT ABLE TO TOLERATE MEDS. LIVER ENZYMES SHOW SIGNS OF SHOCK. WBC ELEVATION MAY BE REACTION TO ACUTE STRESS. I SEE NO SIGNS OF INFECTION BUT FURTHER VAZQUEZ IN [facility]. - Disposition Disposition: [facility]
--- NOTE | 2022-02-22 16:15 | EKG ---
Test Date: 2022-02-21 Test Time: 19:33:13 Energy Analyst: MEASUREMENT RESULTS: Intervals: Rate: 91 HI: QRSD: 202 QT: 484 QTc: 595 [place]: P: HI: QRS: -87 T: 65 INTERPRETIVE STATEMENTS: Electronic ventricular pacemaker Compared to ECG 02/21/2022 13:18:47 Left bundle-branch block no longer present Electronically Signed On 02-22-22 16:14:11 CDT by Jeet Hickman
--- NOTE | 2022-02-22 16:17 | EKG ---
Test Date: 2022-02-21 Test Time: 13:18:47 Lead Nitrate Processor: MIHAELA MEASUREMENT RESULTS: Intervals: Rate: 117 MI: QRSD: 172 QT: 404 QTc: 563 [place]: P: MI: QRS: -17 T: 174 INTERPRETIVE STATEMENTS: Demand pacemaker, interpretation is based on intrinsic rhythm Undetermined rhythm Left bundle branch block Abnormal ECG Compared to ECG 02/13/2022 19:06:01 Left bundle-branch block now present Ventricular premature complex(es) no longer present Electronically Signed On 02-22-22 16:15:26 CDT by Jeet Hickman
== END 2022-02-22 07:30 | disposition short-term general hospital (02) | DRG 308 ==
LOC: ER 12:52 → ERHOLD 16:58 → 3RD-ICU 22:55 → ERHOLD 02-22 01:14
PROVIDERS: ADMIT Internal Medicine; ATTEND Internal Medicine
PROC: 5A09357 Assistance with Respiratory Ventilation, Less than 24 Consecutive Hours, Continuous Positive Airway Pressure (ICD-10-PCS; principal; 2022-02-21)
DX: I48.20 Chronic atrial fibrillation, unspecified (principal); I50.23 Acute on chronic systolic (congestive) heart failure; R57.1 Hypovolemic shock; R57.0 Cardiogenic shock; N17.9 Acute kidney failure, unspecified; I42.0 Dilated cardiomyopathy; I25.10 Atherosclerotic heart disease of native coronary artery without angina pectoris; E78.5 Hyperlipidemia, unspecified; D72.829 Elevated white blood cell count, unspecified; I25.2 Old myocardial infarction; Z88.1 Allergy status to other antibiotic agents; Z95.5 Presence of coronary angioplasty implant and graft; Z88.0 Allergy status to penicillin; Z79.01 Long term (current) use of anticoagulants; Z85.46 Personal history of malignant neoplasm of prostate; Z91.040 Latex allergy status; Z79.899 Other long term (current) drug therapy; Z95.810 Presence of automatic (implantable) cardiac defibrillator; Z20.822 Contact with and (suspected) exposure to COVID-19
CPT/HCPCS: 36415; 51702; 71045; 76705; 80048; 80053; 81003; 81015; 82805; 83605; 83735; 83880; 84145; 84484; 85025; 85610; 87040; 87811; 93005; 94640; 94660; 99285; J0282; J0610; J0692; J1720; J1940; J3370; J7050